=== PATIENT | male | born 1930 | race African-American/Black ===

== ENCOUNTER 2017-09-22 17:01 | Inpatient (IN) | payer OTHER ==
[~2017-09-22] VITALS: Ht 180.3 cm; Wt 85.3 kg
[2017-09-22 17:15] VITALS: BP 156/119
[2017-09-22] MEDS ORDERED: DILTIAZEM 24HR180 MG PO (17:23)
[2017-09-22] MEDS ORDERED: HYDROXYUREA500 M1 PO (17:23)
[2017-09-22] MEDS ORDERED: DOXAZOSIN MESYLA8 MG ORAL (17:23)
[2017-09-22] MEDS ORDERED: FINASTERIDE5 MG ORAL (17:23)
[2017-09-22] MEDS ORDERED: ALLOPURINOL100 M1 ORAL (17:23)
[2017-09-22] MEDS ORDERED: DIOVAN160 MG ORAL (17:23)
[2017-09-22] MEDS ORDERED: NORVASC10 MG ORAL (17:23)
[2017-09-22] MEDS ORDERED: QUINAPRIL HCL40 MG PO (17:23)
[2017-09-22] MEDS ORDERED: XARELTO10 MG ORAL (17:23)
[2017-09-22] MEDS ORDERED: dilTIAZem HCl 25mg/5ml Inj IVP ONE (17:30)
[2017-09-22] MEDS ORDERED: Norco 5mg/325mg tab ORAL ONE (17:30)
--- NOTE | 2017-09-22 17:35 | Emergency Room Report ---
History of Present Illness General Chief Complaint: Pain Source: Patient Present Illness HPI 87-year-old male brought in by EMS with one month of left thigh pain, but after fall on left knee outside. No referred pain to the pelvis or knee. Pain to left thigh with walking 15-20 steps. No pain on range of motion of left knee or left hip. 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 Was referred by his PMD who is a physician office rep but denies history of HD but states he has CKD. Patient also complaining of intermittent left-sided chest pain. States he is on Cardizem for "my heart" but denies known history of atrial fibrillation. States he is on xarelto to "prevent clots in my heart". Denies shortness of breath, cough fever chills. Patient overall is a poor historian - likely has known history of atrial fib given Cardizem and the coagulation that he takes took medications today Allergies: Coded Allergies: ASPIRIN (Verified Allergy, Unknown, 09/22/17) Patient History Past Medical History: HTN, AFib Past Surgical History: none Pertinent Family History: none Social History: Denies: smoking, alcohol use, drug use Immunizations: UTD Reviewed Nursing Documentation: PMH: Agreed, PSxH: Agreed Nursing Documentation-PMH Past Medical History: No History, Except For Hx Cardiac Problems: No Hx Hypertension: Yes Hx Pacemaker: No Hx Asthma: No Hx COPD: No Hx Diabetes: No Hx Cancer: No Hx Gastrointestinal Problems: No Hx Dialysis: No History Of Psychiatric Problem: No Hx Neurological Problems: No Hx Cerebrovascular Accident: No Hx Seizures: No Review of Systems All Other Systems: negative except mentioned in HPI Physical Exam Vital Signs Date Time Temp Pulse Resp B/P (MAP) Pulse Ox O2 Delivery O2 Flow Rate FiO2 09/22/17 16:56 97.7 118 16 162/89 96 Room Air Sp02 EP Interpretation: reviewed, normal General Appearance: normal inspection, well appearing, no apparent distress, alert, GCS 15, non-toxic Head: normocephalic, atraumatic Eyes: bilateral eye PERRL, bilateral eye EOMI ENT: normal ENT inspection, hearing grossly normal, normal pharynx, no angioedema, normal voice, TMs + canals normal, uvula midline, moist mucus membranes Neck: normal inspection, full range of motion, supple, thyroid normal, no meningismus, no bony tend Respiratory: normal inspection, lungs clear, normal breath sounds, no rhonchi, no respiratory distress, no retraction, no accessory muscle use, no wheezing, speaking full sentences Cardiovascular #1: no edema, no JVD, normal capillary refill, tachycardia, irregularly irregular Gastrointestinal: normal inspection, normal bowel sounds, non tender, soft, no mass, no peritonitis, non-distended, no guarding, no hernia, no pulsatile mass Genitourinary: no CVA tenderness Musculoskeletal: normal inspection, back normal, normal range of motion, no calf tenderness, pelvis stable, Edel's Sign negative, other - left thigh: No abscess, or cellulitis. focal tenderness to mid thigh. no pain or reduced range of motion to left hip or left knee. Mild old abrasions to patella. 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 tested, motor strength/tone normal, cerebellar normal, normal gait, speech normal Psychiatric: normal inspection, judgement/insight normal, mood/affect normal, no suicidal/homicidal ideation, no delusions Skin: normal inspection, normal color, no rash Lymphatic: normal inspection, no adenopathy Procedures Critical Care Time Critical Care Time CC time 45 Critical care time endorsed for this patient for atrial fib with RVR and chest pain Critical care time includes review of laboratory tests, imaging, review of EMR, review of paperwork from SNF (if available), discussion with patient and family (if available), review of code status/POLS (if available). Critical care time also likely includes assessment of fluid status, stabilization of vital signs, selection and dosing of appropriate antibiotics, selection and dosing of Aspirin/Plavix/Heparin/Lovenox, discussion with PMD/ attending hospitalist/dimension warehouse supervisor. Critical care time does not include any procedures which are documented elsewhere in this EMR. Medical Decision Making Diagnostic Impression: Primary Impression: Chest pain Qualified Codes: R07.9 - Chest pain, unspecified Additional Impressions: Atrial fibrillation with rapid ventricular response Left thigh pain CKD (chronic kidney disease) Qualified Codes: N18.9 - Chronic kidney disease, unspecified ER Course 87-year-old male, known A. fib, allegedly compliant with medication but found to be in RVR in the ER. Complaining of mild chest pain. Already on anticoagulation. Improved heart rate after IV diltiazem Labs: No leuks. H&H stable. Trop WNL. Mile elevated creatinine c/w patient's stated history of known CKD For Atrial fib with chest pain, given 15mg IV dose of cardizem with improvement in HR from 140/150 to 110. BP remained stable. Left thigh pain: No acute fracture, mass or other abnormality on images of left thigh and pelvis Pain likely MSK Pain is not posterior - doubt DVT given compliance on AC Endorsed to Dr Sanabria Panel admission Tele bed, 616pm EKG Diagnostic Results Rate: tachycardiac Rhythm: other - Atrial fib ST Segments: no acute changes ASA given to the pt in ED: No Rhythm Strip Diag. Results EP Interpretation: yes Rate: 144 Rhythm: other - +PVCs Chest X-Ray Diagnostic Results Chest X-Ray Diagnostic Results : Chest X-Ray Ordered: Yes Indication: Chest Pain EP Interpretation: Yes Interpretation: no effusion, no pneumothorax, other - Cardiomegaly Impression: No acute disease Electronically Signed by: Dr Esperanza Gama MD Other X-Ray Diagnostic Results Other X-Ray Diagnostic Results #1: X-Ray ordered: pelvis # of Views/Limited Vs Complete: 1 View Indication: Pain EP Interpretation: Yes Interpretation: no dislocation, no soft tissue swelling, no fractures Impression: No acute disease Electronically Signed by: Dr Esperanza Gama MD Other X-Ray Diagnostic Results #2: X-Ray ordered: Left femur # of Views/Limited Vs Complete: 4 View Indication: Pain EP Interpretation: Yes Interpretation: no dislocation, no soft tissue swelling, no fractures Impression: No acute disease Electronically Signed by: Dr Esperanza Gama mD Last Vital Signs Date Time Temp Pulse Resp B/P (MAP) Pulse Ox O2 Delivery O2 Flow Rate FiO2 09/22/17 17:15 97.7 143 22 156/119 98 Room Air Status: improved Disposition: ADMITTED INPATIENT Condition: Serious ESPERANZA GAMA M.D. Sep 22, 2017 17:35
[2017-09-22 17:55] LABS: BASOPHILS % (AUTO) 1.5 % (0.0-2.0); EOSINOPHILS % (AUTO) 0.5 % (0.0-3.0); LYMPHOCYTES % (AUTO) 6.1 % (20.0-45.0); MEAN CORPUSCULAR HEMOGLOBIN 33.2 PG (27.0-31.0); MEAN CORPUSCULAR HGB CONC 31.6 G/DL (32.0-36.0); MEAN CORPUSCULAR VOLUME 105 FL (80-99); MEAN PLATELET VOLUME 4.4 FL (6.5-10.1); MONOCYTES % (AUTO) 9.3 % (1.0-10.0); NEUTROPHILS % (AUTO) 82.6 % (45.0-75.0); PLATELET COUNT 592 K/UL (150-450); RED BLOOD COUNT 4.23 M/UL (4.70-6.10); WHITE BLOOD COUNT 9.5 K/UL (4.8-10.8)
[2017-09-22 18:06] LABS: ANION GAP 12 mmol/L (5-15); CALCIUM 9.5 MG/DL (8.5-10.1); CARBON DIOXIDE 25 MMOL/L (21-32); CHLORIDE 102 MMOL/L (98-107); CREATININE 1.6 MG/DL (0.55-1.30); POTASSIUM 3.7 MMOL/L (3.5-5.1); SODIUM 139 MMOL/L (136-145)
[2017-09-22] MEDS ORDERED: TYLENOL EXTRA500 MG ORAL (18:15)
[2017-09-22] MEDS ORDERED: ASPIR 8181 MG ORAL (18:15)
[2017-09-22 18:21] LABS: ALANINE AMINOTRANSFERASE 13 U/L (12-78); ALBUMIN/GLOBULIN RATIO 0.8 (1.0-2.7); ASPARTATE AMINO TRANSFERASE 12 U/L (15-37); CKMB 1.5 NG/ML (0.0-3.6); TOTAL PROTEIN 7.1 G/DL (6.4-8.2)
[2017-09-22 19:32] VITALS: BP 160/85
--- NOTE | 2017-09-22 20:02 | Cardiology Progress Note ---
Assessment/Plan Assessment/Plan The patient is seen and examined, full consult note will be dictated. Objective Last 24 Hour Vital Signs Date Time Temp Pulse Resp B/P (MAP) Pulse Ox O2 Delivery O2 Flow Rate FiO2 09/22/17 19:32 98.2 107 22 160/85 97 Room Air 09/22/17 19:00 97.7 09/22/17 17:48 143 156/119 09/22/17 17:15 143 22 Room Air 98 09/22/17 17:15 97.7 143 22 156/119 98 Room Air 09/22/17 16:56 97.7 118 16 162/89 96 Room Air Laboratory Tests Test 09/22/17 17:40 White Blood Count 9.5 K/UL (4.8-10.8) Red Blood Count 4.23 M/UL (4.70-6.10) L Hemoglobin 14.0 G/DL (14.2-18.0) L Hematocrit 44.4 % (42.0-52.0) Mean Corpuscular Volume 105 FL (80-99) H Mean Corpuscular Hemoglobin 33.2 PG (27.0-31.0) H Mean Corpuscular Hemoglobin Concent 31.6 G/DL (32.0-36.0) L Red Cell Distribution Width 13.0 % (11.6-14.8) Platelet Count 592 K/UL (150-450) H Mean Platelet Volume 4.4 FL (6.5-10.1) L Neutrophils (%) (Auto) 82.6 % (45.0-75.0) H Lymphocytes (%) (Auto) 6.1 % (20.0-45.0) L Monocytes (%) (Auto) 9.3 % (1.0-10.0) Eosinophils (%) (Auto) 0.5 % (0.0-3.0) Basophils (%) (Auto) 1.5 % (0.0-2.0) Sodium Level 139 MMOL/L (136-145) Potassium Level 3.7 MMOL/L (3.5-5.1) Chloride Level 102 MMOL/L (98-107) Carbon Dioxide Level 25 MMOL/L (21-32) Anion Gap 12 mmol/L (5-15) Blood Urea Nitrogen 19 mg/dL (7-18) H Creatinine 1.6 MG/DL (0.55-1.30) H Estimat Glomerular Filtration Rate mL/min (>60) Glucose Level 110 MG/DL (74-106) H Calcium Level 9.5 MG/DL (8.5-10.1) Total Bilirubin 0.6 MG/DL (0.2-1.0) Aspartate Amino Transf (AST/SGOT) 12 U/L (15-37) L Alanine Aminotransferase (ALT/SGPT) 13 U/L (12-78) Alkaline Phosphatase 118 U/L (46-116) H Total Creatine Kinase 38 U/L (26-308) Creatine Kinase MB 1.5 NG/ML (0.0-3.6) Creatine Kinase MB Relative Index 3.9 Troponin I 0.027 ng/mL (0.000-0.056) Total Protein 7.1 G/DL (6.4-8.2) Albumin 3.2 G/DL (3.4-5.0) L Globulin 3.9 g/dL Albumin/Globulin Ratio 0.8 (1.0-2.7) L SYEDA GUZMÁN Sep 22, 2017 20:02
[2017-09-22 21:00] VITALS: BP 152/99
[2017-09-22] MEDS: Morphine Sulfate 2mg/ml Inj IVP PRN (22:51)
[2017-09-22] MEDS ORDERED: Acetaminophen 500mg (ES) tab ORAL PRN (23:00)
[2017-09-23] VITALS: BP 141/87
[2017-09-23] MEDS ORDERED: Enoxaparin 40mg Inj SUBQ SCH
[2017-09-23 04:00] VITALS: BP 134/85
[2017-09-23 07:58] LABS: BASOPHILS % (AUTO) 0.8 % (0.0-2.0); EOSINOPHILS % (AUTO) 0.8 % (0.0-3.0); LYMPHOCYTES % (AUTO) 9.5 % (20.0-45.0); MEAN CORPUSCULAR HEMOGLOBIN 34.7 PG (27.0-31.0); MEAN CORPUSCULAR HGB CONC 33.1 G/DL (32.0-36.0); MEAN CORPUSCULAR VOLUME 105 FL (80-99); MEAN PLATELET VOLUME 4.7 FL (6.5-10.1); MONOCYTES % (AUTO) 11.9 % (1.0-10.0); NEUTROPHILS % (AUTO) 76.8 % (45.0-75.0); PLATELET COUNT 630 K/UL (150-450); RED BLOOD COUNT 4.44 M/UL (4.70-6.10); RED CELL DISTRIBUTION WIDTH 13.1 % (11.6-14.8); WHITE BLOOD COUNT 9.6 K/UL (4.8-10.8)
[2017-09-23 08:00] VITALS: BP 144/90
[2017-09-23 08:11] LABS: HEMOGLOBIN A1C 5.5 % (4.3-6.0)
[2017-09-23 08:17] LABS: ANION GAP 9 mmol/L (5-15); CALCIUM 9.7 MG/DL (8.5-10.1); CARBON DIOXIDE 28 MMOL/L (21-32); CHLORIDE 103 MMOL/L (98-107); CHOLESTEROL 143 MG/DL (< 200); CHOLESTEROL/HDL RATIO 1.6 (3.3-4.4); CREATININE 1.4 MG/DL (0.55-1.30); MAGNESIUM 1.8 MG/DL (1.8-2.4); POTASSIUM 4.4 MMOL/L (3.5-5.1); SODIUM 140 MMOL/L (136-145); THYROID STIMULATING HORMONE 0.759 uiU/mL (0.358-3.740)
[2017-09-23] MEDS ORDERED: Xarelto 10mg tab ORAL SCH (09:00)
[2017-09-23] MEDS: Hydroxyurea 500mg cap ORAL SCH (09:00)
[2017-09-23] MEDS: dilTIAZem HCl CD 180mg cap ORAL SCH (09:06)
[2017-09-23] MEDS: Allopurinol 100mg Tab ORAL SCH (09:06)
[2017-09-23] MEDS: Aspirin Baby 81mg ORAL SCH (09:06)
[2017-09-23] MEDS: Doxazosin 4mg tab ORAL SCH (09:07)
[2017-09-23] MEDS: Enoxaparin 40mg Inj SUBQ SCH (09:08)
[2017-09-23] MEDS: Morphine Sulfate 2mg/ml Inj IVP PRN (10:57)
[2017-09-23] MEDS ORDERED: Pneumococcal Vaccine 25mcg/0.5ml IM ONE (11:00)
[2017-09-23 12:00] VITALS: BP 145/81
--- NOTE | 2017-09-23 12:30 | History & Physical ---
History and Physical History & Physicial seen and examined. Dict completed Scotty Sanabria MD Sep 23, 2017 12:30
--- NOTE | 2017-09-23 12:35 | General Progress Note ---
Assessment/Plan Status: stable Assessment/Plan 1- Acute Dys-equilibrium 2- Dementia 3- Acute Encephalopathy ( ?), and Fall 4- Fall 5- Afib plan: Cardiology Neurology Head Ct PT/OT consulted Subjective ROS Limited/Unobtainable: No Constitutional: Reports: no symptoms HEENT: Reports: no symptoms Allergies: Coded Allergies: ASPIRIN (Verified Allergy, Unknown, 09/22/17) Subjective Left sided pain Objective Last 24 Hour Vital Signs Date Time Temp Pulse Resp B/P (MAP) Pulse Ox O2 Delivery O2 Flow Rate FiO2 09/23/17 09:06 100 134/85 09/23/17 04:00 97.7 100 20 134/85 97 Room Air 09/23/17 03:38 105 09/23/17 00:00 97.9 80 20 141/87 97 09/22/17 23:43 103 09/22/17 21:57 170 09/22/17 21:38 109 09/22/17 21:23 120 09/22/17 21:08 143 09/22/17 21:00 97.8 100 22 152/99 97 Room Air 09/22/17 21:00 94 09/22/17 20:45 98.2 107 22 160/85 97 Room Air 98 09/22/17 19:32 98.2 107 22 160/85 97 Room Air 09/22/17 19:00 97.7 09/22/17 17:48 143 156/119 09/22/17 17:15 143 22 Room Air 98 09/22/17 17:15 97.7 143 22 156/119 98 Room Air 09/22/17 16:56 97.7 118 16 162/89 96 Room Air Intake and Output 09/23/17 09/24/17 19:00 07:00 Intake Total 240 ml Output Total 350 ml Balance -110 ml Intake Oral 240 ml Output Urine Total 350 ml Laboratory Tests 09/22/17 17:40: White Blood Count 9.5, Red Blood Count 4.23L, Hemoglobin 14.0L, Hematocrit 44.4 , Mean Corpuscular Volume 105H, Mean Corpuscular Hemoglobin 33.2H, Mean Corpuscular Hemoglobin Concent 31.6L, Red Cell Distribution Width 13.0, Platelet Count 592H, Mean Platelet Volume 4.4L, Neutrophils (%) (Auto) 82.6H, Lymphocytes (%) (Auto) 6.1L, Monocytes (%) (Auto) 9.3, Eosinophils (%) (Auto) 0.5, Basophils (%) (Auto) 1.5, Sodium Level 139, Potassium Level 3.7, Chloride Level 102, Carbon Dioxide Level 25, Anion Gap 12, Blood Urea Nitrogen 19H, Creatinine 1.6H, Estimat Glomerular Filtration Rate , Glucose Level 110H, Calcium Level 9.5, Total Bilirubin 0.6, Aspartate Amino Transf (AST/SGOT) 12L, Alanine Aminotransferase (ALT/SGPT) 13, Alkaline Phosphatase 118H, Total Creatine Kinase 38, Creatine Kinase MB 1.5, Creatine Kinase MB Relative Index 3.9, Troponin I 0.027, Total Protein 7.1, Albumin 3.2L, Globulin 3.9, Albumin/ Globulin Ratio 0.8L 09/22/17 23:40: Troponin I 0.041 09/23/17 06:40: White Blood Count 9.6, Red Blood Count 4.44L, Hemoglobin 15.4, Hematocrit 46.6, Mean Corpuscular Volume 105H, Mean Corpuscular Hemoglobin 34.7H, Mean Corpuscular Hemoglobin Concent 33.1, Red Cell Distribution Width 13.1, Platelet Count 630H, Mean Platelet Volume 4.7L, Neutrophils (%) (Auto) 76.8H, Lymphocytes (%) (Auto) 9.5L, Monocytes (%) (Auto) 11.9H, Eosinophils (%) (Auto) 0.8, Basophils (%) (Auto) 0.8, Sodium Level 140, Potassium Level 4.4, Chloride Level 103, Carbon Dioxide Level 28, Anion Gap 9, Blood Urea Nitrogen 16, Creatinine 1.4H, Estimat Glomerular Filtration Rate , Glucose Level 102, Calcium Level 9.7, Troponin I 0.040, Hemoglobin A1c 5.5, Magnesium Level 1.8, Triglycerides Level 64, Cholesterol Level 143, LDL Cholesterol 57, HDL Cholesterol 88H, Cholesterol/HDL Ratio 1.6L, Thyroid Stimulating Hormone (TSH) 0.759 Height (Feet): 5 Height (Inches): 11.00 Weight (Pounds): 188 General Appearance: WD/WN EENT: PERRL/EOMI Neck: supple Respiratory/Chest: lungs clear Abdomen: soft Extremities: other - Dysequilibrium 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
--- NOTE | 2017-09-23 12:51 | Diagnostic Imaging Report ---
Indication: Altered mental status Technique: XRAY Chest 1v Comparison: None Findings: Heart appears borderline enlarged. There is central pulmonary vascular congestion. There is an ovoid density in the right midlung which measures up to 3.8 cm in length. There is no pleural effusion or pneumothorax. No acute osseous abnormality seen. Impression: Ovoid density in the right midlung measuring up to 3.7 cm. Lung mass not excluded. CT of the chest recommended for further evaluation. Probable cardiomegaly. Findings chest with treating nurse Kurt via telephone conversation at time of creation of final report.
--- NOTE | 2017-09-23 12:51 | Diagnostic Imaging Report ---
Indication: Altered mental status and pain. Technique: XRAY Pelvis 1v Comparison: None Findings: There is no acute fracture or dislocation. Degenerative changes of the hips and lower lumbar spine seen. There is slight protrusion of the acetabulum. Bowel gas pattern is partially visualized but grossly unremarkable. No radiopaque foreign body seen. Impression: No acute fracture or dislocation.
--- NOTE | 2017-09-23 12:54 | Diagnostic Imaging Report ---
Indication: Altered mental status. Pain. Technique: XRAY Femur 2v L Comparison: Correlation made to concurrent pelvic radiographs Findings: No acute fracture or dislocation. Mild degenerative changes of the left hip and knee noted. No radiopaque foreign body seen. Impression: No acute fracture or dislocation.
--- NOTE | 2017-09-23 13:24 | Neurology Progress Note ---
Interim History Interim History ROS Limited/Unobtainable: No Objective Physical Exam Last Vital Signs Date Time Temp Pulse Resp B/P (MAP) Pulse Ox O2 Delivery O2 Flow Rate FiO2 09/23/17 09:06 100 134/85 09/23/17 04:00 97.7 20 97 Room Air 09/22/17 20:45 98 Laboratory Tests Test 09/22/17 17:40 09/22/17 23:40 09/23/17 06:40 White Blood Count 9.5 K/UL (4.8-10.8) 9.6 K/UL (4.8-10.8) Red Blood Count 4.23 M/UL (4.70-6.10) L 4.44 M/UL (4.70-6.10) L Hemoglobin 14.0 G/DL (14.2-18.0) L 15.4 G/DL (14.2-18.0) Hematocrit 44.4 % (42.0-52.0) 46.6 % (42.0-52.0) Mean Corpuscular Volume 105 FL (80-99) H 105 FL (80-99) H Mean Corpuscular Hemoglobin 33.2 PG (27.0-31.0) H 34.7 PG (27.0-31.0) H Mean Corpuscular Hemoglobin Concent 31.6 G/DL (32.0-36.0) L 33.1 G/DL (32.0-36.0) Red Cell Distribution Width 13.0 % (11.6-14.8) 13.1 % (11.6-14.8) Platelet Count 592 K/UL (150-450) H 630 K/UL (150-450) H Mean Platelet Volume 4.4 FL (6.5-10.1) L 4.7 FL (6.5-10.1) L Neutrophils (%) (Auto) 82.6 % (45.0-75.0) H 76.8 % (45.0-75.0) H Lymphocytes (%) (Auto) 6.1 % (20.0-45.0) L 9.5 % (20.0-45.0) L Monocytes (%) (Auto) 9.3 % (1.0-10.0) 11.9 % (1.0-10.0) H Eosinophils (%) (Auto) 0.5 % (0.0-3.0) 0.8 % (0.0-3.0) Basophils (%) (Auto) 1.5 % (0.0-2.0) 0.8 % (0.0-2.0) Sodium Level 139 MMOL/L (136-145) 140 MMOL/L (136-145) Potassium Level 3.7 MMOL/L (3.5-5.1) 4.4 MMOL/L (3.5-5.1) Chloride Level 102 MMOL/L (98-107) 103 MMOL/L (98-107) Carbon Dioxide Level 25 MMOL/L (21-32) 28 MMOL/L (21-32) Anion Gap 12 mmol/L (5-15) 9 mmol/L (5-15) Blood Urea Nitrogen 19 mg/dL (7-18) H 16 mg/dL (7-18) Creatinine 1.6 MG/DL (0.55-1.30) H 1.4 MG/DL (0.55-1.30) H Estimat Glomerular Filtration Rate mL/min (>60) mL/min (>60) Glucose Level 110 MG/DL (74-106) H 102 MG/DL (74-106) Calcium Level 9.5 MG/DL (8.5-10.1) 9.7 MG/DL (8.5-10.1) Total Bilirubin 0.6 MG/DL (0.2-1.0) Aspartate Amino Transf (AST/SGOT) 12 U/L (15-37) L Alanine Aminotransferase (ALT/SGPT) 13 U/L (12-78) Alkaline Phosphatase 118 U/L (46-116) H Total Creatine Kinase 38 U/L (26-308) Creatine Kinase MB 1.5 NG/ML (0.0-3.6) Creatine Kinase MB Relative Index 3.9 Troponin I 0.027 ng/mL (0.000-0.056) 0.041 ng/mL (0.000-0.056) 0.040 ng/mL (0.000-0.056) Total Protein 7.1 G/DL (6.4-8.2) Albumin 3.2 G/DL (3.4-5.0) L Globulin 3.9 g/dL Albumin/Globulin Ratio 0.8 (1.0-2.7) L Hemoglobin A1c 5.5 % (4.3-6.0) Magnesium Level 1.8 MG/DL (1.8-2.4) Triglycerides Level 64 MG/DL (30-150) Cholesterol Level 143 MG/DL (< 200) LDL Cholesterol 57 mg/dL (<100) HDL Cholesterol 88 MG/DL (40-60) H Cholesterol/HDL Ratio 1.6 (3.3-4.4) L Thyroid Stimulating Hormone (TSH) 0.759 uiU/mL (0.358-3.740) Impression/Recommendations Status: stable Recommendations # [id number] IONA MURGUIA Sep 23, 2017 13:24
--- NOTE | 2017-09-23 14:01 | Cardiology Report ---
APPROVED REPORT EXAM: Two-dimensional and M-mode echocardiogram with Doppler and color Doppler. INDICATION Atrial Fibrillation M-Mode DIMENSIONS IVSd1.0 (0.7-1.1cm)Left Atrium (MM)5.5 (1.6-4.0cm) LVDd4.5 (3.5-5.6cm)Aortic Root2.8 (2.0-3.7cm) PWd1.1 (0.7-1.1cm)Aortic Cusp Exc.2.0 (1.5-2.0cm) LVDs2.7 (2.5-4.0cm) PWs1.6 cm Normal left ventricular chamber size, systolic function and wall motion. Left ventricular ejection fraction estimated to be 60 %. No evidence of left ventricular hypertrophy. Anterior Echo-free space, may be due to pericardial fat or effusion. Mild bi-atrial enlargement. Right ventricular chamber size is within normal limits. Focal aortic valve sclerosis with adequate cusp excursion. Thickened mitral valve leaflets with normal excursion. Mitral annulus and aortic root calcification. Normal pulmonic valve structure. Normal tricuspid valve structure. IVC at normal size with physiologic collapse. A color flow and spectral Doppler study was performed and revealed: Moderate aortic regurgitation. Moderate mitral regurgitation. Left ventricular diastolic function could not be determined due to A-Fib. Mild tricuspid regurgitation. Tricuspid systolic velocities suggests peak right ventricular systolic pressure of 62 mmHg, consistent with severe pulmonary hypertension. Trace pulmonic regurgitation present.
--- NOTE | 2017-09-23 14:19 | Cardiology Report ---
APPROVED REPORT EKG Measurement Heart [id number] Atrial fibrillation with rapid ventricular response Septal infarct, age undetermined Abnormal ECG
--- NOTE | 2017-09-23 14:19 | Cardiology Report ---
APPROVED REPORT EKG Measurement Heart [id number] Atrial fibrillation with rapid ventricular response Low voltage QRS Abnormal ECG
[2017-09-23 16:00] VITALS: BP 137/82
[2017-09-23 16:01] LABS: CRP QUANT 4.5 mg/dL (0.00-0.90); PSA TOTAL 1.78 ng/mL (0.13-4.0)
[2017-09-23 20:11] VITALS: BP 145/80
--- NOTE | 2017-09-23 22:16 | Consultation ---
DATE OF CONSULTATION: 09/23/2017 NEUROLOGICAL CONSULTATION CONSULTING PHYSICIAN: Bi Marti M.D. REQUESTING PHYSICIAN: Scotty Sanabria M.D. HISTORY OF PRESENT ILLNESS: This is an 87-year-old man seen in neurological consultation to evaluate the new onset of inability to ambulate. The patient who appears to be a reasonable historian informed me that about 2 months ago he started to develop a persistent pain in the right thigh region, was increasing with ambulation subsiding while he is supine. His attending physician was unable to figure out the diagnosis and recommended him to be seen by content strategist. One month ago, he was loading his car, he got some off balance and fell down landing on his left knee. He had a local pain but 2 weeks later pain continued to increase and yesterday as he tried to ambulate he was unable, fell down because of pain in his both lower extremities. There was no associated symptomatology. No loss of consciousness. No unilateral weakness, numbness, or tingling. No chest pain or palpitations. The patient was brought to this hospital still complaining of intermittent left-sided chest pain, but mainly he has pain in his both lower extremities and difficulty ambulating due to inability to step or to place weight on his left leg with the pain in his knee. His vital signs on admission included blood pressure 162/89 and heart rate 118. His blood glaucoma scale was 15. His EKG, tachycardia with atrial fibrillation, heart rate of 144. Chest x-ray, no acute disease noted. X-ray of the left femur, no dislocation. No fractures noted. The patient was treated with 50 mg IV dose of Cardizem improving heart rate down to 110. Since admission until present, there were no further changes in his condition. The patient indicated while supine, pain is comfortable. The patient now informs me that pain was now controlled by "morphine" given by his attending physician but he felt better with the Tylenol and topical ointments. Lab work on admission included CBC study with elevated MCV, MCH. Chemistry panel with BUN of 19 and creatinine 1.6. Repeat testing was normal BUN, but creatinine 1.4. Glucose 110. Normal troponin and TSH. PAST MEDICAL HISTORY: The patient has a history of chronic renal failure, hypertension and cardiac disease requiring use of Eliquis. Cardiac disease, most likely atrial fibrillation. CURRENT MEDICATIONS: His treatment included allopurinol, amlodipine, aspirin, diltiazem, doxazosin, finasteride, hydroxyurea, quinapril, Xarelto 10 mg daily and Diovan 160 mg daily. ALLERGIES: Aspirin. SOCIAL HISTORY: The patient lives alone. He is driving his car. 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 No alcohol. No drug abuse. Nonsmoker. Able to proceed with all activities of daily living. FAMILY HISTORY: Noncontributory. REVIEW OF SYMPTOMS: Mild discomfort in the right thigh and left knee while supine, pain increasing with ambulation. He developed months ago left shoulder pain without evidence of previous injury. He denies headache or dizziness. No chest pain. No palpitations. No respiratory problems. Denies abdominal pain or discomfort. No urine or bowel incontinence. No evidence of depression. PHYSICAL EXAMINATION: GENERAL: A well-developed, well-nourished, younger than stated age appearing man, in no acute distress. VITAL SIGNS: Now are stable. Blood pressure 134/85 and heart rate of 100. Afebrile. HEENT: Head, normocephalic. No evidence of trauma. Eyes, ears, nose, and throat are clear. NECK: Supple. No meningeal signs. MUSCULOSKELETAL EXAMINATION: Unremarkable except palpable tenderness in the right thigh region and some tenderness in the left knee region. There is a healed recent bruise on his left knee noted. There is tenderness on palpation of the left shoulder with limited range of motion of the left shoulder. Peripheral pulses 1+ symmetric. MENTAL STATUS: Alert and oriented x3 with no evidence of aphasia or apraxia. Cognitive function is reasonable, although he is somewhat forgetful on recent events, but remained coherent. CRANIAL NERVE II: Pupils both responding to light and accommodation. Extraocular movement intact. No nystagmus. CRANIAL NERVE V: Normal corneal responses. CRANIAL NERVE VII: No facial asymmetry. CRANIAL NERVE VIII: Grossly normal hearing. CRANIAL NERVES IX THROUGH XII: With normal limits. MOTOR EXAMINATION: Normal muscle tone. Strength 5/5 in all extremities. No involuntary movement. Deep tendon reflexes 1+ bilaterally symmetric. SENSORY EXAMINATION: Normal to pinprick light touch. Gait, the patient was able to stand up on his feet, but he was heavily limping to the left due to pain in his left knee. IMPRESSION: 1. Progressive generalized aches and pains, rule out occult fracture left knee and rule out left shoulder pericapsulitis and rule out collagen vascular disease. 2. Abnormal gait due to pain in his lower extremities. 3. No evidence of transient ischemic attack or stroke. 4. Atrial fibrillation, now on Xarelto. 5. Chronic renal failure. 6. Hypertension. RECOMMENDATIONS: 1. Get x-rays of the left shoulder and left knee. 2. Get collagen vascular profile. 3. Orthopedic assessment regarding possible left shoulder pericapsulitis. 4. Topical anti-inflammatory agents to painful joints. The patient is unable to take by mouth nonsteroidal agents due to renal insufficiency and use of Xarelto. 5. Get PT/OT. Thank you for allowing me to see this interesting patient in neurological consultation. Bi Marti M.D. DR: ANTOINETTE JOB#: [id number] CC:
[2017-09-23] MEDS: Zolpidem 5mg tab ORAL PRN (23:11)
--- NOTE | 2017-09-23 23:45 | History and Physical Report ---
DATE OF ADMISSION: 09/22/2017 SOURCE OF INFORMATION: The patient and EMR. HISTORY OF PRESENT ILLNESS: The patient is a pleasant 87-year-old male with history of chronic kidney disease and atrial fibrillation. The patient presented to the emergency room with unsteady gait, ataxia, and pain in the left side of the body for the last couple of weeks and gradually getting worse. At the time of evaluation in the emergency room, initial vital signs showed irregular uncontrolled atrial fibrillation. The patient is complaining of an episode of fall on the left side. The patient denies any gross sensory problem. The patient appears to suffer from dementia at this time, the patient denies any nausea, vomiting, diarrhea, constipation, fever, or chills. PAST MEDICAL HISTORY: Atrial fibrillation, hypertension, and BPH. PAST SURGICAL HISTORY: Denies. CURRENT HOSPITAL MEDICATIONS: Including but not limited to Protonix, hydroxyurea 500 mg daily, Proscar, Cardura, diltiazem, aspirin, and allopurinol. ALLERGIES: To aspirin. SOCIAL HISTORY: There is no documented history of illicit drug abuse, smoking, or alcohol abuse. FAMILY HISTORY: Reviewed and noncontributory. REVIEW OF SYSTEMS: All 12 elements of review of systems reviewed with the patient. Pertinent positives and negatives reported as above. PHYSICAL EXAMINATION: VITAL SIGNS: Blood pressure 145 /80, temperature 98.2, pulse oximetry 98% on room air, respiratory rate 18-20, and pulse rate 110-140. HEAD AND NECK: Atraumatic, normocephalic. CHEST: Diffuse bronchial breathing sounds. HEART: S1, S2. Regular rate and rhythm. ABDOMEN: Soft. No organomegaly. MUSCULOSKELETAL: Decreased range of motion in the left lower extremity. NEUROLOGIC: The patient is awake, alert, and oriented x3. Positive for dementia. PSYCHIATRIC: Mood and affect are depressed. LABORATORY DATA: Laboratories dated 09/22/2017, show WBC 9.5, hemoglobin 14, and platelets 592,000. Sodium 139, potassium 3.7, BUN 19, and creatinine 1.6. A1c 5.5. AST 12. LDL 57. TSH 0.8. Troponin x3 negative. ASSESSMENT AND PLAN: 1. Disequilibrium. 2. Atrial fibrillation, uncontrolled. 3. Acute encephalopathy - possibility cannot be excluded in this poor historian patient. 4. Dementia. 5. Hypertension. 6. Benign prostatic hypertrophy. 7. Renal failure, age indeterminate. 8. Gastrointestinal and deep vein thrombosis prophylaxes. PLAN OF CARE: Neurology, cardiology are consulted. We will continue with the current medication. A 2D echo and carotid duplex requested. Continue with anticoagulation. Optimize medication to control the cardiac rhythm and cardiac rate. Scotty Sanabria M.D. DR: SUSSY JOB#: [id number] CC: CARLI
[2017-09-24 00:25] VITALS: BP 150/87
[2017-09-24 03:57] VITALS: BP 141/95
--- NOTE | 2017-09-24 07:57 | General Progress Note ---
Assessment/Plan Status: stable Assessment/Plan 1. Disequilibrium. 2. Atrial fibrillation, 3. Acute encephalopathy - possibility cannot be excluded in this poor historian patient. 4. Dementia. 5. Hypertension. 6. Benign prostatic hypertrophy. 7. Renal failure, age indeterminate. 8. Gastrointestinal and deep vein thrombosis prophylaxes. plan: Cardiology Neurology Notes reviewed Head Ct pending PT/OT consulted SNIF placement for Rehab Subjective ROS Limited/Unobtainable: No Constitutional: Reports: malaise Neurologic/Psychiatric: Reports: other - dysequilibrium Allergies: Coded Allergies: ASPIRIN (Verified Allergy, Unknown, 09/22/17) Subjective Left sided pain Objective Last 24 Hour Vital Signs Date Time Temp Pulse Resp B/P (MAP) Pulse Ox O2 Delivery O2 Flow Rate FiO2 09/24/17 04:00 118 09/24/17 03:57 97.6 107 20 141/95 97 Room Air 09/24/17 00:25 97.7 81 20 150/87 97 Room Air 09/24/17 00:00 100 09/23/17 20:11 97.7 100 23 145/80 97 Room Air 09/23/17 20:00 116 09/23/17 16:00 102 09/23/17 16:00 97.9 98 20 137/82 100 Room Air 09/23/17 12:00 97.5 87 20 145/81 98 Room Air 09/23/17 12:00 116 09/23/17 09:06 100 134/85 09/23/17 08:00 97.7 72 20 144/90 97 Room Air 09/23/17 08:00 89 Height (Feet): 5 Height (Inches): 11.00 Weight (Pounds): 188 General Appearance: no apparent distress EENT: PERRL/EOMI Neck: supple Cardiovascular: normal rate Respiratory/Chest: lungs clear Abdomen: soft Extremities: other - limping, pain in left leg 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
[2017-09-24 08:00] VITALS: BP 139/84
[2017-09-24] MEDS: Allopurinol 100mg Tab ORAL SCH (08:58)
[2017-09-24] MEDS: Aspirin Baby 81mg ORAL SCH (08:58)
[2017-09-24] MEDS: Hydroxyurea 500mg cap ORAL SCH (08:58)
[2017-09-24] MEDS: dilTIAZem HCl CD 180mg cap ORAL SCH (08:58)
[2017-09-24] MEDS: Doxazosin 4mg tab ORAL SCH (08:58)
[2017-09-24] MEDS: Enoxaparin 40mg Inj SUBQ SCH (08:59)
--- NOTE | 2017-09-24 11:23 | Diagnostic Imaging Report ---
Indication: Headache Technique: Contiguous 5 mm thick transaxial imaging of the head obtained in a Siemens Sensation [address] scanner. Soft tissue and bone windows generated. Automatic Exposure Control was utilized. Total Dose length Product (DLP): 1439.[address] Dose Index Volume (CTDIvol): 70.38 mGy Comparison: none Findings: There is moderate prominence of the ventricles, basal cisterns, and cerebral sulci consistent with atrophy. Moderate, nonspecific, white matter hypoattenuation is noted throughout the brain consistent with chronic small vessel disease. There is no midline shift, edema, acute hemorrhage, mass effect, or abnormal extra-axial fluid collections. Bones and extra osseous soft tissues are unremarkable. Impression: No acute intracranial bleed, mass effect or edema. Moderate atrophy of the brain. Evidence of chronic small vessel disease involving white matter tracts. The CT scanner at [facility] is accredited by the [employer] and the scans are performed using dose optimization techniques as appropriate to a performed exam including Automatic Exposure control.
[2017-09-24 12:00] VITALS: BP 135/100
--- NOTE | 2017-09-24 13:42 | Diagnostic Imaging Report ---
Indication: Pain 3 views of the left knee were obtained. Findings: No acute fracture, malalignment, or joint effusion are identified. Joint space is relatively well-maintained. Impression: Negative for acute injury
--- NOTE | 2017-09-24 13:43 | Diagnostic Imaging Report ---
Indication: Pain Findings: 3 views of the left shoulder were obtained. Alignment of the left shoulder is normal. No acute fracture is identified. Soft tissues are unremarkable. Bones are osteopenic. Impression: No acute injury
[2017-09-24 16:00] VITALS: BP 151/91
--- NOTE | 2017-09-24 16:27 | Diagnostic Imaging Report ---
Indication: Chest pain Technique: Continuous helical transaxial imaging of the chest was obtained from the thoracic inlet to the upper abdomen. No intravenous contrast was administered. Coronal 2-D reformats were also obtained. Total Dose length Product (DLP): 651.[address] Dose Index Volume (CTDIvol): 16.29 mGy Comparison: none Findings: There is a possibility for centimeter spiculated mass within the right middle lobe suspicious for bronchogenic carcinoma. There is associated atelectasis at the medial edge of this mass extending into the right hilum. There is a small pericardial effusion. There is a suggestion of mediastinal and hilar nodes. Aorta is moderately calcified. There is a cyst moderate right pleural effusion and trace left pleural effusion. There are multiple hypodensities within the liver and left kidney likely cysts. There is suggestion of a nonobstructing stone in the right kidney incompletely assessed and visualized on this study. There is a prominent lytic focus demonstrated within the posterior aspect of the T10 vertebra consistent with metastatic neoplasm. IMPRESSION: 4 cm mass in the right middle lobe consistent with bronchogenic carcinoma. Hilar and mediastinal adenopathy. Lytic metastatic focus noted involving the left T10 vertebra. Multiple liver and left renal cysts. Suspicion of nonobstructing stone in the right kidney. Small pericardial effusion Moderate right pleural effusion. Limited evaluation due to the absence of contrast material not given for this study. The CT scanner at [facility] is accredited by the [employer] and the scans are performed using dose optimization techniques as appropriate to a performed exam including Automatic Exposure control.
[2017-09-24 20:00] VITALS: BP 145/97
[2017-09-24] MEDS: Enoxaparin 80mg Inj SUBQ SCH (22:01)
[2017-09-24] MEDS: Zolpidem 5mg tab ORAL PRN (23:12)
[2017-09-24] MEDS: dilTIAZem HCl 30mg tab ORAL SCH (23:12)
[2017-09-25] VITALS: BP_SYST 138; BP_SYST 152; BP_DIAS 79; BP_DIAS 92
[2017-09-25] MEDS ORDERED: dilTIAZem HCl 30mg tab ORAL SCH ×2
[2017-09-25] MEDS ORDERED: dilTIAZem HCl CD 180mg cap ORAL SCH
[2017-09-25 04:00] VITALS: BP 142/84
[2017-09-25] MEDS: dilTIAZem HCl 30mg tab ORAL SCH (06:06)
--- NOTE | 2017-09-25 07:49 | General Progress Note ---
Assessment/Plan Status: stable Assessment/Plan 1. Disequilibrium, possibility of brain met, cant be excluded 2. Atrial fibrillation, 3. Acute encephalopathy - possibility of brain met, cant be excluded 4. New Lung CA in RLL 4. Dementia. 5. Hypertension. 6. Benign prostatic hypertrophy. 7. Renal failure, age indeterminate. 8. Gastrointestinal and deep vein thrombosis prophylaxes. plan: Cardiology Neurology Notes reviewed start Lovenox Hem/onch consult- TREATMENT/STAGING WILL BE DEFERRED TO OUT PATIENT New Lung CA in RLL SNIF placement once medically clear Subjective ROS Limited/Unobtainable: No Constitutional: Reports: malaise HEENT: Reports: no symptoms Cardiovascular: Reports: no symptoms Allergies: Coded Allergies: ASPIRIN (Verified Allergy, Unknown, 09/22/17) Subjective Left sided pain Objective Last 24 Hour Vital Signs Date Time Temp Pulse Resp B/P (MAP) Pulse Ox O2 Delivery O2 Flow Rate FiO2 09/25/17 06:06 112 142/84 09/25/17 04:00 101 09/25/17 04:00 97.3 94 20 142/84 Room Air 09/25/17 00:00 108 09/25/17 00:00 98.2 132 20 152/92 97 Room Air 09/24/17 23:12 121 145/97 09/24/17 20:00 116 09/24/17 20:00 98.2 101 20 145/97 95 Room Air 09/24/17 16:00 97.9 103 19 151/91 97 09/24/17 16:00 134 09/24/17 12:00 125 09/24/17 12:00 97.2 75 19 135/100 99 09/24/17 08:58 107 139/84 09/24/17 08:00 97.2 107 20 139/84 99 09/24/17 08:00 131 Height (Feet): 5 Height (Inches): 11.00 Weight (Pounds): 188 General Appearance: no apparent distress EENT: PERRL/EOMI Neck: supple Cardiovascular: normal rate Respiratory/Chest: rhonchi - bilaterally, rhonchi - right Abdomen: soft Extremities: other 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
[2017-09-25 08:15] VITALS: BP 148/104
[2017-09-25] MEDS: Doxazosin 4mg tab ORAL SCH (08:19)
[2017-09-25] MEDS: Aspirin Baby 81mg ORAL SCH (08:20)
[2017-09-25] MEDS: dilTIAZem HCl 60mg tab ORAL SCH ×3 (08:20→22:06)
[2017-09-25] MEDS: Hydroxyurea 500mg cap ORAL SCH (08:20)
[2017-09-25] MEDS: Enoxaparin 80mg Inj SUBQ SCH ×2 (08:21→22:05)
[2017-09-25] MEDS: Allopurinol 100mg Tab ORAL SCH (10:04)
[2017-09-25 12:00] VITALS: BP 142/77
--- NOTE | 2017-09-25 13:06 | Neurology Progress Note ---
Interim History Interim History ROS Limited/Unobtainable: No Complaints: pain L shoulder/left knee/foot, affecting his gait Events: stable Objective Physical Exam Last Vital Signs Date Time Temp Pulse Resp B/P (MAP) Pulse Ox O2 Delivery O2 Flow Rate FiO2 09/25/17 12:00 97.7 87 18 142/77 95 Room Air 09/22/17 20:45 98 General: well developed, well nourished, no acute distress Head: normocophalic, atraumatic Neck: no rigidity EENT: benign Neurologic Exam Mental Status: awake, alert, oriented x4, normal cognition, good mathematical skills, normal recent memory, normal remote memory, preserved visuospatial function Speech: normal speech, no dysarthia Language: normal language, no aphasia Cranial Nerve II: fundus normal, visual mittal, no papilledema Cranial Nerves III, IV, : PERRLA, EOMI, pupils Cranial Nerve V: normal facial sensations, temporales function normal, masseters function normal, pterygoids function normal Cranial Nerve VII: no facial asymmetry, normal facial expressions Cranial Nerve VIII: normal hearing, no nystagmus Cranial Nerve IX: normal palate elevation, gag response Cranial Nerve X: no voice hoarseness Cranial Nerve XI: SCM symmetric, trapezii function normal Cranial Nerve XII: tongue midline, no tongue atrophy/fasciculations Motor System: normal muscle tone, strength 5/5, no involuntary movement, no muscle wasting Sensory: normal pinprick Coordination: normal finger to nose bilaterally, normal heel to chun bilaterally Deep Tendon Reflexes: 1+ bicep (L), 1+ bicep (R), 1+ tricep (L), 1+ tricep (R) , 1+ brachioradialis (L), 1+ brachioradialis (R), 1+ knee (L), 1+ knee (R), 1+ ankle (L), 1+ ankle (R) Reflexes: mute plantar (L), mute plantar (R) Stance: normal Gait: other - unable to put wt on L foot 2/2 pain-- unable to walk ,unless fully assaisted Impression/Recommendations Problems: (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
[2017-09-25 16:14] VITALS: BP 135/87
--- NOTE | 2017-09-25 17:50 | Consultation ---
Consult Note Consult Note PCCM Consultation REFERRING PHYSICIAN: Scotty Sanabria MD REASON FOR CONSULTATION: Lung mass HPI: 87 M former smoker a/w unsteady gait and weakness noted to be in AFcRVR, CXR showed a R mid lung density, CT chest was done which demonstrated a 4 cm spiculated RML mass with hilar and mediastinal LAD + moderate R sided effusion and possible T10 lytic lesion. The patient denies any cough, SOB, wheezing, hemoptysis, weight loss, sweats, F/C or other complaints. In addition to the CP and generalized weakness he was admitted with he has several months of L thigh and knee pain, XR was unrevealing. His TTE showed a PASP of 69 without any e/o LV dysfunction. 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 MEDS: Active Scripts Medications Dose Route/Sig Max Daily Dose Days Date Category Aspir 81* (Aspirin) 81 Mg Tablet.dr 81 Mg ORAL DAILY 09/22/17 Reported Tylenol Extra Strength* (Acetaminophen) 500 Mg Tablet 500 Mg ORAL Q6H PRN 09/22/17 Reported Quinapril Hcl 40 Mg Tablet 40 Mg PO 09/22/17 Reported Finasteride 5 Mg Tablet 5 Mg ORAL DAILY 09/22/17 Reported Diovan (Valsartan) 160 Mg Tablet 160 Mg ORAL DAILY 09/22/17 Reported Hydroxyurea 500 Mg Capsule 500 Mg PO 09/22/17 Reported Allopurinol* (Allopurinol) 100 Mg Tablet 100 Mg ORAL DAILY 09/22/17 Reported Xarelto* (Rivaroxaban) 10 Mg Tablet 10 Mg ORAL DAILY 09/22/17 Reported Doxazosin Mesylate 8 Mg Tablet 8 Mg ORAL DAILY 09/22/17 Reported Diltiazem 24HR Cd (Diltiazem Hcl) 180 Mg Cap.er.24h 180 Mg PO 09/22/17 Reported Norvasc (Amlodipine Besylate) 10 Mg Tablet 10 Mg ORAL DAILY 09/22/17 Reported SHx: Prior extensive tobbaco, quit > 20 years ago, no drug or EtOH abuse, lives independantly FHx: N/C ROS: Negative other than HPI PE: Last 24 Hour Vital Signs Date Time Temp Pulse Resp B/P (MAP) Pulse Ox O2 Delivery O2 Flow Rate FiO2 09/25/17 16:50 92 09/25/17 16:14 97.2 117 18 135/87 95 Room Air 09/25/17 13:48 87 142/77 09/25/17 12:00 97.7 87 18 142/77 95 Room Air 09/25/17 11:33 91 09/25/17 08:20 112 148/104 09/25/17 08:15 97.3 103 20 148/104 94 Room Air 09/25/17 07:53 107 09/25/17 06:06 112 142/84 09/25/17 04:00 101 09/25/17 04:00 97.3 94 20 142/84 Room Air 09/25/17 00:00 108 09/25/17 00:00 98.2 132 20 152/92 97 Room Air 09/24/17 23:12 121 145/97 09/24/17 20:00 116 09/24/17 20:00 98.2 101 20 145/97 95 Room Air GEN: NAD, AAOX3 HEENT: NC/AT, OPC c MMM NECK: Supple s LAD or JVD CHEST: CTA COR: Ir Ir ABD: S/NT/D c NABS EXT: No C/C/E 09/24/17 CT CHEST: IMPRESSION: 4 cm mass in the right middle lobe consistent with bronchogenic carcinoma. Hilar and mediastinal adenopathy. Lytic metastatic focus noted involving the left T10 vertebra. Multiple liver and left renal cysts. Suspicion of nonobstructing stone in the right kidney Small pericardial effusion Moderate right pleural effusion. Limited evaluation due to the absence of contrast material not given for this study. 09/23/17 TTE: Normal left ventricular chamber size, systolic function and wall motion. Left ventricular ejection fraction estimated to be 60 %. No evidence of left ventricular hypertrophy. Anterior Echo-free space, may be due to pericardial fat or effusion. Mild bi-atrial enlargement. Right ventricular chamber size is within normal limits. Focal aortic valve sclerosis with adequate cusp excursion. Thickened mitral valve leaflets with normal excursion. Mitral annulus and aortic root calcification. Normal pulmonic valve structure. Normal tricuspid valve structure. IVC at normal size with physiologic collapse. A color flow and spectral Doppler study was performed and revealed: Moderate aortic regurgitation. Moderate mitral regurgitation. Left ventricular diastolic function could not be determined due to A-Fib. Mild tricuspid regurgitation. Tricuspid systolic velocities suggests peak right ventricular systolic pressure of 62 mmHg, consistent with severe pulmonary hypertension. Trace pulmonic regurgitation present. Assessment/Plan ASSESSMENT: -RML 4 cm density with hilar + mediastinal LAD, concerning for a primary lung malignancy -Moderate R sided pleural effusion -Possible T10 lytic lesion -AF, admitted with RVR, now rate controlled and on A/C -Pulmonary HTN (on TTE) -Extensive prior tobacco use -Possible underlying COPD -LE pain and recent immobility -BRAULIO on CKD -BPH PLAN: -The appropriate work up of this lung mass would be a PET/CT + bone scan given concern for lytic lesions followed by EITHER a CT guided biopsy of the mass followed by a mediastinoscopy versus a NAVIGATIONAL BRONCHOSCOPY with EBUS FNA of the mediastinal nodes for definitive staging. Given the patient is currently on LMWH I would prefer to start with imaging and then we would have to hold the A/C and go ahead with a definitive tissue diagnosis. I have discussed this with the patient and will discuss if further with Dr. Sanabria and Heme-Onc prior to formulating a definitive plan. -Will need outpatient PFT's -Optimize pulmonary hygiene/mobilize as tolerated -PRN HHN's -Rate control (dilt) per cards -Repeat TTE in the future once acute issues resolved and if PASP truly elevated can w/u further at that time -F/U neuro recs, consider PT, consider ortho eval -DVT Px: A/C Ziggy Ace MD, [facility] Pulmonary & Critical Care Medicine [address], [address] [place] [address] ZIGGY ACE M.D. Sep 25, 2017 17:50
--- NOTE | 2017-09-25 18:53 | Cardiology Progress Note ---
Assessment/Plan Assessment/Plan 1. Atrial fibrillation, continue Xarelto and cardizem. 2. HTN, on cardizem 3. Right lung mass Subjective Subjective Atrial fibrillation at 92. Objective Last 24 Hour Vital Signs Date Time Temp Pulse Resp B/P (MAP) Pulse Ox O2 Delivery O2 Flow Rate FiO2 09/25/17 16:50 92 09/25/17 16:14 97.2 117 18 135/87 95 Room Air 09/25/17 13:48 87 142/77 09/25/17 12:00 97.7 87 18 142/77 95 Room Air 09/25/17 11:33 91 09/25/17 08:20 112 148/104 09/25/17 08:15 97.3 103 20 148/104 94 Room Air 09/25/17 07:53 107 09/25/17 06:06 112 142/84 09/25/17 04:00 101 09/25/17 04:00 97.3 94 20 142/84 Room Air 09/25/17 00:00 108 09/25/17 00:00 98.2 132 20 152/92 97 Room Air 09/24/17 23:12 121 145/97 09/24/17 20:00 116 09/24/17 20:00 98.2 101 20 145/97 95 Room Air Intake and Output 09/25/17 09/26/17 19:00 07:00 Intake Total 480 ml Output Total 200 ml Balance 280 ml Intake Oral 480 ml Output Urine Total 200 ml # Voids 2 2D Echo: LVEF 60%, Mod ANNE MARIE, RVSP 62 mmHg, Mod AR/MR Laboratory Tests Test 09/25/17 18:10 Fibrinogen Pending Jak2 V617F Mutation Detection Pending JAK2 V617F Mutation Background Pending JAK2 V617F Reviewed By Pending Iron Level Pending Unsaturated Iron Binding Pending Ferritin Pending Alpha Fetoprotein Pending CA 15-3 Antigen Pending Folate Pending Objective HEENT: normocephalic, atraumatic, PERRL, EOMI, moist mucus membranes Neck: No JVD, no carotid bruit Respiratory: normal inspection, lungs clear Cardiovascular: no edema, no JVD, normal capillary refill, tachycardia, irregularly irregular Gastrointestinal: normal inspection, normal bowel sounds, non tender, soft, no mass, no peritonitis, non-distended, no guarding, no hernia, no pulsatile mass Musculoskeletal: left thigh, focal tenderness to mid thigh, no edema, clubbing or cyanosis, Mild old abrasions to patella. SYEDA GUZMÁN Sep 25, 2017 18:53
[2017-09-25 19:16] LABS: FERRITIN 273 NG/ML (8-388)
[2017-09-25 19:31] LABS: FOLIC ACID 10.7 NG/ML (8.6-58.9); IRON 34 ug/dL (50-175); TOTAL IRON BINDING CAPACITY 187 ug/dL (250-450)
[2017-09-25 20:00] VITALS: BP 154/90
[2017-09-25] MEDS: Zolpidem 5mg tab ORAL PRN (22:09)
--- NOTE | 2017-09-25 22:17 | Consultation ---
DATE OF CONSULTATION: 09/22/2017 CARDIOLOGY CONSULTATION CONSULTING PHYSICIAN: Terrance Vogt M.D. REFERRING PHYSICIAN: Scotty Sanabria M.D. REASON FOR CONSULTATION: Management of syncope. HISTORY OF PRESENT ILLNESS: The patient is a very unfortunate 87-year-old gentleman, who was brought in by EMS for evaluation of syncope. Apparently, the patient has had frequent falls with questionable syncopal events. 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 He is known to have atrial fibrillation and was tried on Coumadin in the past, however, that therapy was discontinued due to GI bleed. He also has history of pacemaker implantation. Complaining of left-sided chest pain and left thigh pain. Apparently, he had an episode of fall on the left knee recently. He was found to have atrial fibrillation with rapid ventricular response on arrival to the emergency department. Further questioning from the patient in the emergency department revealed that he had also intermittent left-sided chest pain. He takes Xarelto for prevention of thromboembolic events. He is a very poor historian and is not capable of providing a detailed history of the reason why he is in the emergency department. PAST MEDICAL HISTORY: Consistent with: 1. Hypertension. 2. History of atrial fibrillation. PAST SURGICAL HISTORY: None. MEDICATIONS: List of medications include acetaminophen 500 mg q.6 hours p.r.n. pain, allopurinol 100 mg p.o. daily, Norvasc 10 mg p.o. daily, aspirin 81 mg p.o. daily, diltiazem 180 mg p.o. daily, doxazosin 8 mg p.o. daily, finasteride 5 mg p.o. daily, hydroxyurea 500 mg daily, quinapril 40 mg p.o. daily, Xarelto 10 mg p.o. daily, and valsartan 160 mg daily. SOCIAL HISTORY: Denies any tobacco, alcohol, or illicit drug use. FAMILY HISTORY: No premature coronary artery disease in first-degree relatives. REVIEW OF SYSTEMS: HEENT: Denies any headache, diplopia, or blurred vision. CONSTITUTIONAL: Denies any fever, chills, night sweats, or weight loss or weight gain. CARDIOVASCULAR: Intermittent chest pain described as sharp and no associated shortness of breath. No syncope. PULMONARY: Denies any cough, hemoptysis, or wheezing. GASTROINTESTINAL: Denies any nausea, vomiting, diarrhea, constipation, abdominal pain, or GI bleed. GENITOURINARY: Denies any hematuria, dysuria, or incontinence. NEUROLOGIC: Denies any motor dysfunction, sensory deficit, or altered speech. MUSCULOSKELETAL: Complains of left thigh pain. PHYSICAL EXAMINATION: VITAL SIGNS: Blood pressure was 162/89, respirations 16, pulse of 118, temperature 97.7 degrees Fahrenheit, and O2 saturation of 96% on room air. GENERAL: The patient is a very pleasant 87-year-old gentleman, in no apparent respiratory distress. Awake and alert x4. HEENT: Atraumatic, normocephalic. Anicteric. Pupils are equal, round, and reactive to light and accommodation. Extraocular muscles intact. NECK: JVP is less than 5 cm. No carotid bruit. Carotid upstrokes 2+ bilaterally. CARDIOVASCULAR: Normal S1, S2. Irregularly irregular rhythm. Tachycardic. No murmurs, gallops, or rubs. LUNGS: Clear to auscultation bilaterally. ABDOMEN: Soft, nontender, and nondistended. No hepatosplenomegaly. Positive bowel sounds. EXTREMITIES: No evidence of edema, clubbing, or cyanosis. LABORATORY AND DIAGNOSTIC DATA: A 12-lead electrocardiogram shows atrial fibrillation with rapid ventricular response at a rate of 142, low-voltage QRS, abnormal EKG. Laboratory findings, WBC is 9.5, hemoglobin of 14.0, hematocrit of 44.4, and platelet count is 592,000. Sodium is 139, potassium is 3.7, chloride 102, bicarbonate 25, BUN of 19, creatinine 1.6, glucose is 110, and calcium is 9.5. Chest x-ray showed cardiomegaly and presence of right midlung mass measuring upto about 3.[address] of the chest is recommended. No evidence of pulmonary edema. ASSESSMENT AND PLAN: The patient is a very unfortunate 87-year-old gentleman, seen in Cardiology consultation at the request of Dr. Sanabria. 1. Atrial fibrillation with rapid ventricular response. I would like to continue diltiazem and up titrate to keep the heart rate below 90. 2. We will continue with his Xarelto, was given as an outpatient. 3. History of hypertension, on valsartan and diltiazem. 4. I would like to order 2D echocardiography for assessment of left ventricular systolic and diastolic function. 5. Further therapeutic and diagnostic decision will be based on the results of 2D echocardiography. I would like to thank, Dr. Sanabria, for allowing me to participate in the care of this patient. Terrance Vogt M.D. DR: CIERRA JOB#: [id number] CC:
[2017-09-26] VITALS (7 sets, daily range): BP systolic 128–159; BP diastolic 80–99
--- NOTE | 2017-09-26 03:02 | Consultation ---
DATE OF CONSULTATION: 09/24/2017 HEMATOLOGY/ONCOLOGY CONSULTATION CONSULTING PHYSICIAN: Duc Mills M.D. REFERRING PHYSICIAN: Scotty Sanabria M.D. REASON FOR CONSULTATION: Evaluation of stage IV lung cancer. IDENTIFYING DATA: Dear Dr. Sanabria: The patient is a pleasant 87-year-old male with past medical history significant for atrial fibrillation, hypertension, and BPH as well as CKD, at this time presents to the hospital with unsteady gait, fatigue, weakness, shortness of breath, pain on the left side of the body for the last couple of weeks that has been getting worse. Evaluation in the ER showed the patient had uncontrolled atrial fibrillation, currently is better controlled. The patient has a history of dementia and does not recall any other medical history that is significant. CAT scan of the brain completed, which showed moderate atrophy of the brain, evidence of chronic small disease changes. CAT scan of the chest completed, shows a 4 cm mass in the right lower lobe consistent with bronchogenic carcinoma, hilar mediastinal adenopathy, lytic metastasis in the T10 vertebra, multiple liver and renal cysts. Hematology Service was consulted for evaluation of metastatic colon cancer. PAST MEDICAL HISTORY: Hypertension, BPH, and atrial fibrillation. PAST SURGICAL HISTORY: None noted. CURRENT MEDICATIONS: Protonix, hydroxyurea, Proscar, Cardura, diltiazem, and aspirin. ALLERGIES: To aspirin. SOCIAL HISTORY: No alcohol, tobacco, or illicit drug use. FAMILY HISTORY: Noncontributory. REVIEW OF SYSTEMS: A 12-point review of systems otherwise is negative. PHYSICAL EXAMINATION: VITAL SIGNS: Reviewed. GENERAL: No acute distress. PULMONARY: Decreased breath sounds. CARDIOVASCULAR: Regular rate. No S3 or S4. ABDOMEN: Soft, nontender, and nondistended. EXTREMITIES: A 1+ edema. LABORATORY DATA: WBC of 9.6, hemoglobin 15.4, and platelet count 630,000. ESR 54. INR . CRP of 4.5. TSH of 1.78. Immunology reviewed. c-ANCA and p-ANCA are pending. MALENA is pending. ASSESSMENT AND RECOMMENDATIONS: 1. Stage IV lung cancer. The patient with evidence of metastatic disease to the bones as well as metastatic disease that involves the right middle lobe of the lung, hilar mediastinal adenopathy. At this time obtain CT-guided biopsy. Pulmonary team has been consulted as well. Currently, Lovenox is on hold. I appreciate consultation with Dr. Ace. 2. Thrombocytosis, likely secondary to underlying anemia. 3. Anemia, secondary to chronic disease. Continue to closely monitor. 4. Bony metastasis. Consider Zometa as an outpatient to prevent fractures. 5. Presyncopal episode. No evidence of metastasis to the brain is noted at this time. 6. Progressive dementia over the past several years. 7. Atrial fibrillation, on Xarelto in the past. I appreciate the consultation. Duc Mills M.D. DR: RAS JOB#: [id number] CC:
[2017-09-26] MEDS: dilTIAZem HCl 60mg tab ORAL SCH ×2 (05:37→14:28)
[2017-09-26] MEDS: Aspirin Baby 81mg ORAL SCH (07:59)
[2017-09-26] MEDS: Doxazosin 4mg tab ORAL SCH (07:59)
[2017-09-26] MEDS: Allopurinol 100mg Tab ORAL SCH (07:59)
[2017-09-26] MEDS: Hydroxyurea 500mg cap ORAL SCH (07:59)
[2017-09-26] MEDS: Enoxaparin 80mg Inj SUBQ SCH ×3 (08:32→21:24)
[2017-09-26] MEDS: Lactulose 20gm/30ml UDC ORAL PRN (09:00)
--- NOTE | 2017-09-26 09:08 | General Progress Note ---
Assessment/Plan Status: stable Assessment/Plan 1. Disequilibrium, possibility of brain met, cant be excluded 2. Atrial fibrillation, 3. Acute encephalopathy - possibility of brain met, cant be excluded 4. New Lung CA in RLL 4. Dementia. 5. Hypertension. 6. Benign prostatic hypertrophy. 7. Renal failure, age indeterminate. 8. Gastrointestinal and deep vein thrombosis prophylaxes. plan: Cardiology Neurology Notes reviewed start xarelto Hem/onch consult- Diagnosis in progress TREATMENT/STAGING WILL BE DEFERRED TO OUT PATIENT New Lung CA in RLL- based on imaging features SNIF placement once medically clear Subjective ROS Limited/Unobtainable: No Constitutional: Reports: weakness HEENT: Reports: no symptoms Cardiovascular: Reports: no symptoms Allergies: Coded Allergies: ASPIRIN (Verified Allergy, Unknown, 09/22/17) Subjective Left sided pain Objective Last 24 Hour Vital Signs Date Time Temp Pulse Resp B/P (MAP) Pulse Ox O2 Delivery O2 Flow Rate FiO2 09/26/17 08:37 97.7 119 20 155/81 99 Room Air 09/26/17 05:37 104 150/80 09/26/17 04:00 97.7 93 20 150/80 Room Air 09/26/17 04:00 104 09/26/17 00:00 97.7 91 20 128/89 97 Room Air 09/26/17 00:00 97 09/25/17 22:06 120 154/90 09/25/17 20:00 107 09/25/17 20:00 98.1 82 20 154/90 100 Room Air 09/25/17 16:50 92 09/25/17 16:14 97.2 117 18 135/87 95 Room Air 09/25/17 13:48 87 142/77 09/25/17 12:00 97.7 87 18 142/77 95 Room Air 09/25/17 11:33 91 Laboratory Tests 09/25/17 18:10: Fibrinogen 662H, Jak2 V617F Mutation Detection [Pending], JAK2 V617F Mutation Background [Pending], JAK2 V617F Reviewed By [Pending], Iron Level 34L, Total Iron Binding Capacity 187L, Percent Iron Saturation 18, Unsaturated Iron Binding 153, Ferritin 273, Alpha Fetoprotein [Pending], CA 15-3 Antigen [Pending ], Folate 10.7 Height (Feet): 5 Height (Inches): 11.00 Weight (Pounds): 188 General Appearance: no apparent distress EENT: PERRL/EOMI Neck: supple Cardiovascular: normal rate Respiratory/Chest: rhonchi - right Abdomen: soft Extremities: non-tender Neurologic: director fraud II-XII grossly normal Scotty Sanabria MD Sep 26, 2017 09:08
[2017-09-26 10:16] LABS: CA15-3 59.7 U/mL (0.0-25.0)
--- NOTE | 2017-09-26 13:24 | Pulmonology Progress Note ---
Assessment/Plan Problems: (1) Lung cancer metastatic to bone (2) Atrial fibrillation with rapid ventricular response (3) Chest pain (4) CKD (chronic kidney disease) Assessment/Plan ASSESSMENT: -RML 4 cm density with hilar + mediastinal LAD, concerning for a primary lung malignancy -Moderate R sided pleural effusion -Possible T10 lytic lesion -AF, admitted with RVR, now rate controlled and on A/C -Pulmonary HTN (on TTE) -Extensive prior tobacco use -Possible underlying COPD -LE pain and recent immobility -BRAULIO on CKD -BPH PLAN: -LMWH held --> F/U CTGbx and onc recs, should have definitive mediastinal staging even if the lung path is + for CA -PET as outpatient -Will need outpatient PFT's -Optimize pulmonary hygiene/mobilize as tolerated -PRN HHN's -Rate control (dilt) per cards -Repeat TTE in the future once acute issues resolved and if PASP truly elevated can w/u further at that time -F/U neuro recs, consider PT, consider ortho eval -DVT Px: A/C Ziggy Ace MD, [facility] Pulmonary & Critical Care Medicine [address], [address] [place] [address] Subjective Allergies: Coded Allergies: ASPIRIN (Verified Allergy, Unknown, 09/22/17) Subjective AFVSS, rate controlled Refused CTGBx but now amenable No cough, no SOB, no wheezing, no F/C Onc eval noted Objective Last 24 Hour Vital Signs Date Time Temp Pulse Resp B/P (MAP) Pulse Ox O2 Delivery O2 Flow Rate FiO2 09/26/17 11:52 97.7 96 18 152/98 99 Room Air 09/26/17 11:45 92 09/26/17 08:37 97.7 119 20 155/81 99 Room Air 09/26/17 07:43 104 09/26/17 05:37 104 150/80 09/26/17 04:00 97.7 93 20 150/80 Room Air 09/26/17 04:00 104 09/26/17 00:00 97.7 91 20 128/89 97 Room Air 09/26/17 00:00 97 09/25/17 22:06 120 154/90 09/25/17 20:00 107 09/25/17 20:00 98.1 82 20 154/90 100 Room Air 09/25/17 16:50 92 09/25/17 16:14 97.2 117 18 135/87 95 Room Air 09/25/17 13:48 87 142/77 Intake and Output 09/25/17 09/26/17 19:00 07:00 Intake Total 480 ml 300 ml Output Total 200 ml 225 ml Balance 280 ml 75 ml Intake Oral 480 ml 300 ml Output Urine Total 200 ml 225 ml # Voids 2 General Appearance: WD/WN, no acute distress HEENT: normocephalic, atraumatic, anicteric, mucous membranes moist Respiratory/Chest: chest wall non-tender, lungs clear, normal breath sounds, no respiratory distress, no accessory muscle use Cardiovascular: irregularly irregular Abdomen: normal bowel sounds, soft, non tender, no organomegaly, non distended , no mass Extremities: no cyanosis, no clubbing, no edema Laboratory Tests 09/25/17 18:10: Fibrinogen 662H, Jak2 V617F Mutation Detection [Pending], JAK2 V617F Mutation Background [Pending], JAK2 V617F Reviewed By [Pending], Iron Level 34L, Total Iron Binding Capacity 187L, Percent Iron Saturation 18, Unsaturated Iron Binding 153, Ferritin 273, Alpha Fetoprotein 2.9, CA 15-3 Antigen 59.7H, Folate 10.7 Current Medications Medications (Trade) Dose Ordered Sig/Alfonzo Route PRN Reason Start Time Stop Time Status Last Admin Dose Admin Acetaminophen (Tylenol) 500 mg Q6H PRN ORAL Mild Pain/Temp > 100.5 09/22/17 23:00 10/22/17 22:59 Allopurinol (Zyloprim) 100 mg DAILY ORAL 09/23/17 09:00 10/23/17 08:59 09/26/17 07:59 Aspirin (ASA) 81 mg DAILY ORAL 09/23/17 09:00 10/23/17 08:59 09/26/17 07:59 Dextrose (Dextrose 50%) STAT PRN IV Hypoglycemia 09/22/17 23:00 10/22/17 22:59 Diltiazem HCl (Cardizem) 60 mg EVERY 8 HOURS ORAL 09/25/17 08:00 10/25/17 07:59 09/26/17 05:37 Doxazosin Mesylate (Cardura) 8 mg DAILY ORAL 09/23/17 09:00 10/23/17 08:59 09/26/17 07:59 Enoxaparin Sodium (Lovenox) 80 mg EVERY 12 HOURS SUBQ 09/24/17 21:00 10/24/17 20:59 09/26/17 08:32 Finasteride (Proscar) 5 mg DAILY ORAL 09/23/17 09:00 10/23/17 08:59 09/26/17 07:59 Hydroxyurea (Hydrea) 500 mg DAILY ORAL 09/23/17 09:00 09/28/17 08:59 09/26/17 07:59 Lactulose (Cephulac) 20 gm THREE TIMES A DAY PRN ORAL Constipation 09/26/17 07:15 10/26/17 07:14 09/26/17 09:00 Morphine Sulfate (Morphine Sulfate) 2 mg Q6HR PRN IVP Severe Pain (Pain Scale 7-10) 09/22/17 22:45 09/29/17 22:44 09/23/17 10:57 Pantoprazole (Protonix) 40 mg DAILY ORAL 09/23/17 09:00 10/23/17 08:59 09/26/17 08:31 Zolpidem Tartrate (Ambien) 5 mg HSPRN PRN ORAL Insomnia 09/23/17 20:45 09/30/17 20:44 09/25/17 22:09 ZIGGY ACE M.D. Sep 26, 2017 13:24
[2017-09-26 15:38] LABS: PROTHROMBIN TIME 10.5 SEC (9.30-11.50)
--- NOTE | 2017-09-26 21:02 | General Progress Note ---
Assessment/Plan Assessment/Plan ASSESSMENT AND RECOMMENDATIONS: 1. 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 --> CT guided biopsy scheduled for tomorrow per Dr. Lester 2. Thrombocytosis. JAK2 pending 3. Anemia, secondary to chronic disease. Continue to closely monitor. 4. Bony metastasis. Consider Zometa as an outpatient to prevent fractures. 5. Presyncopal episode. No evidence of metastasis to the brain is noted at this time. 6. Progressive dementia over the past several years. Subjective Allergies: Coded Allergies: ASPIRIN (Verified Allergy, Unknown, 09/22/17) All Systems: reviewed and negative except above Subjective NAD Objective Last 24 Hour Vital Signs Date Time Temp Pulse Resp B/P (MAP) Pulse Ox O2 Delivery O2 Flow Rate FiO2 09/26/17 17:03 97.9 88 18 143/99 98 Room Air 09/26/17 15:11 107 09/26/17 14:28 96 152/98 09/26/17 11:52 97.7 96 18 152/98 99 Room Air 09/26/17 11:45 92 09/26/17 08:37 97.7 119 20 155/81 99 Room Air 09/26/17 07:43 104 09/26/17 05:37 104 150/80 09/26/17 04:00 97.7 93 20 150/80 Room Air 09/26/17 04:00 104 09/26/17 00:00 97.7 91 20 128/89 97 Room Air 09/26/17 00:00 97 09/25/17 22:06 120 154/90 Intake and Output 09/25/17 09/26/17 19:00 07:00 Intake Total 480 ml 300 ml Output Total 200 ml 225 ml Balance 280 ml 75 ml Intake Oral 480 ml 300 ml Output Urine Total 200 ml 225 ml # Voids 2 Laboratory Tests 09/26/17 15:00: Prothrombin Time 10.5, Prothromb Time International Ratio 1.0, Activated Partial Thromboplast Time 35H Height (Feet): 5 Height (Inches): 11.00 Weight (Pounds): 188 General Appearance: no apparent distress EENT: normal ENT inspection Neck: normal alignment Cardiovascular: normal peripheral pulses Respiratory/Chest: chest wall non-tender Skin: normal pigmentation Kleynberg,Duc L. Sep 26, 2017 21:02
[2017-09-26] MEDS: dilTIAZem HCl 30mg tab ORAL SCH (21:26)
[2017-09-26] MEDS: Zolpidem 5mg tab ORAL PRN (23:03)
--- NOTE | 2017-09-26 23:36 | Cardiology Progress Note ---
Assessment/Plan Assessment/Plan 1. Atrial fibrillation with RVR, increase cardizem, start digoxin, Xarelto on hold. 2. HTN, on cardizem 3. Right lung mass Subjective Subjective Atrial fibrillation with RVR at 112. Objective Last 24 Hour Vital Signs Date Time Temp Pulse Resp B/P (MAP) Pulse Ox O2 Delivery O2 Flow Rate FiO2 09/26/17 21:26 118 143/99 09/26/17 21:00 151/82 09/26/17 20:00 98.1 121 20 159/98 98 Room Air 09/26/17 17:03 97.9 88 18 143/99 98 Room Air 09/26/17 15:11 107 09/26/17 14:28 96 152/98 09/26/17 11:52 97.7 96 18 152/98 99 Room Air 09/26/17 11:45 92 09/26/17 08:37 97.7 119 20 155/81 99 Room Air 09/26/17 07:43 104 09/26/17 05:37 104 150/80 09/26/17 04:00 97.7 93 20 150/80 Room Air 09/26/17 04:00 104 09/26/17 00:00 97.7 91 20 128/89 97 Room Air 09/26/17 00:00 97 Intake and Output 09/25/17 09/26/17 19:00 07:00 Intake Total 480 ml 300 ml Output Total 200 ml 225 ml Balance 280 ml 75 ml Intake Oral 480 ml 300 ml Output Urine Total 200 ml 225 ml # Voids 2 2D Echo: LVEF 60%, Mod ANNE MARIE, RVSP 62 mmHg, Mod AR/MR Laboratory Tests Test 09/26/17 15:00 Prothrombin Time 10.5 SEC (9.30-11.50) Prothromb Time International Ratio 1.0 (0.9-1.1) Activated Partial Thromboplast Time 35 SEC (23-33) H Objective HEENT: normocephalic, atraumatic, PERRL, EOMI, moist mucus membranes Neck: No JVD, no carotid bruit Respiratory: normal inspection, lungs clear Cardiovascular: no edema, no JVD, normal capillary refill, tachycardia, irregularly irregular Gastrointestinal: normal inspection, normal bowel sounds, non tender, soft, no mass, no peritonitis, non-distended, no guarding, no hernia, no pulsatile mass Musculoskeletal: left thigh, focal tenderness to mid thigh, no edema, clubbing or cyanosis, Mild old abrasions to patella. SYEDA GUZMÁN Sep 26, 2017 23:36
[2017-09-27] VITALS (10 sets, daily range): BP systolic 114–154; BP diastolic 72–104
[2017-09-27] MEDS: dilTIAZem HCl 30mg tab ORAL SCH ×3 (05:34→21:51)
[2017-09-27] MEDS: Enoxaparin 80mg Inj SUBQ SCH (09:00)
[2017-09-27] MEDS: Aspirin Baby 81mg ORAL SCH (09:48)
[2017-09-27] MEDS: Hydroxyurea 500mg cap ORAL SCH (09:49)
[2017-09-27] MEDS: Doxazosin 4mg tab ORAL SCH (09:49)
[2017-09-27] MEDS: Digoxin 0.125mg tab ORAL SCH (09:51)
[2017-09-27] MEDS: Allopurinol 100mg Tab ORAL SCH (09:51)
[2017-09-27] MEDS ORDERED: Lidocaine 1% Plain 30 ml INJ PRN (11:15)
--- NOTE | 2017-09-27 11:30 | Pre-Procedure Note/Attestation ---
Pre-Procedure Note/Attestation Complete Prior to Procedure Planned Procedure: right Procedure Narrative: CT guided lung biopsy Indications for Procedure Pre-Operative Diagnosis: R lung mass Attestation I attest that I discussed the nature of the procedure; its benefits; risks and complications; and alternatives (and the risks and benefits of such alternatives ), prior to the procedure, with the patient (or the patient's legal eligibility services representative). I attest that, if there was a reasonable possibility of needing a blood transfusion, the patient (or the patient's legal eligibility services representative) was given the [facility] standardized written summary, pursuant to the Lonnie Blayne Blood Safety Act ([place] Health and Safety Code # 1645, as amended). I attest that I re-evaluated the patient just prior to the surgery and that there has been no change in the patient's H&P, except as documented below: MADELYN SANDERS M.D. Sep 27, 2017 11:30
--- NOTE | 2017-09-27 11:54 | General Progress Note ---
Assessment/Plan Status: stable Assessment/Plan 1. Disequilibrium, possibility of brain met, cant be excluded 2. Atrial fibrillation, 3. Acute encephalopathy - possibility of brain met, cant be excluded 4. New Lung CA in RLL 4. Dementia. 5. Hypertension. 6. Benign prostatic hypertrophy. 7. Renal failure, age indeterminate. 8. Gastrointestinal and deep vein thrombosis prophylaxes. plan: Cardiology Neurology Notes reviewed start xarelto Hem/onch consult- Diagnosis in progress TREATMENT/STAGING WILL BE DEFERRED TO OUT PATIENT New Lung CA in RLL- based on imaging features SNIF placement once medically clear Subjective ROS Limited/Unobtainable: No Constitutional: Reports: malaise HEENT: Reports: no symptoms Cardiovascular: Reports: no symptoms Respiratory: Reports: no symptoms Allergies: Coded Allergies: ASPIRIN (Verified Allergy, Unknown, 09/22/17) Subjective Left sided pain Objective Last 24 Hour Vital Signs Date Time Temp Pulse Resp B/P (MAP) Pulse Ox O2 Delivery O2 Flow Rate FiO2 09/27/17 09:51 94 09/27/17 08:00 97.3 94 18 137/87 99 Room Air 09/27/17 05:34 114 147/78 09/27/17 04:00 97.5 113 20 147/78 96 Room Air 09/27/17 04:00 114 09/27/17 00:17 98.1 09/27/17 00:00 90 09/27/17 00:00 97.7 109 20 135/101 100 Room Air 09/26/17 21:26 118 143/99 09/26/17 21:00 151/82 09/26/17 20:00 96 09/26/17 20:00 98.1 121 20 159/98 98 Room Air 09/26/17 17:03 97.9 88 18 143/99 98 Room Air 09/26/17 15:11 107 09/26/17 14:28 96 152/98 Intake and Output 09/26/17 09/27/17 19:00 07:00 Intake Total 240 ml 240 ml Balance 240 ml 240 ml Intake Oral 240 ml 240 ml # Voids 2 3 Laboratory Tests 09/26/17 15:00: Prothrombin Time 10.5, Prothromb Time International Ratio 1.0, Activated Partial Thromboplast Time 35H Height (Feet): 5 Height (Inches): 11.00 Weight (Pounds): 188 General Appearance: no apparent distress EENT: PERRL/EOMI Neck: supple Cardiovascular: normal rate Respiratory/Chest: rhonchi - bilaterally Abdomen: soft Extremities: non-tender 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
[2017-09-27] MEDS: Eliquis 2.5mg tablet ORAL SCH ×2 (12:00→18:04)
--- NOTE | 2017-09-27 12:11 | Brief Operative Note ---
Immediate Post Operative Note Operative Note Chief Complaint: SOB Pre-op Diagnosis: R lung mass Procedure: CT guided lung biopsy Post-op Diagnosis: same Findings: consistent w/pre-op dx studies Surgeon: Enrico SANDERS Anesthesia: local Specimen: yes - 2 18 G cores Complications: none Condition: stable Fluids: none Implant(s) used?: No MADELYN SANDERS M.D. Sep 27, 2017 12:11
--- NOTE | 2017-09-27 12:45 | Pulmonology Progress Note ---
Assessment/Plan Problems: (1) Lung cancer metastatic to bone (2) Atrial fibrillation with rapid ventricular response (3) Chest pain (4) CKD (chronic kidney disease) Assessment/Plan ASSESSMENT: -RML 4 cm density with hilar + mediastinal LAD, concerning for a primary lung malignancy S/P CTGBx 09/27/17 -Moderate R sided pleural effusion -Possible T10 lytic lesion -AF, admitted with RVR, now rate controlled and on A/C -Pulmonary HTN (on TTE) -Extensive prior tobacco use -Possible underlying COPD -LE pain and recent immobility -BRAULIO on CKD -BPH PLAN: -F/U CTGbx path and onc recs, should have definitive mediastinal staging even if the lung path is + for CA -PET as outpatient -Will need outpatient PFT's -Optimize pulmonary hygiene/mobilize as tolerated -PRN HHN's -Rate control (dilt) per cards -Repeat TTE in the future once acute issues resolved and if PASP truly elevated can w/u further at that time -F/U neuro recs, consider PT, consider ortho eval -DVT Px: A/C Ziggy Ace MD, [facility] Pulmonary & Critical Care Medicine [address], [address] [place] [address] Subjective Allergies: Coded Allergies: ASPIRIN (Verified Allergy, Unknown, 09/22/17) Subjective AFVSS, rate controlled AF S/P CTGBx No cough, no SOB, no wheezing, no F/C Objective Last 24 Hour Vital Signs Date Time Temp Pulse Resp B/P (MAP) Pulse Ox O2 Delivery O2 Flow Rate FiO2 09/27/17 12:10 96 18 154/89 100 Room Air 09/27/17 12:03 110 18 147/86 99 Room Air 09/27/17 12:00 117 18 146/104 99 Room Air 09/27/17 11:47 115 09/27/17 09:51 94 09/27/17 08:00 97.3 94 18 137/87 99 Room Air 09/27/17 05:34 114 147/78 09/27/17 04:00 97.5 113 20 147/78 96 Room Air 09/27/17 04:00 114 09/27/17 00:17 98.1 09/27/17 00:00 90 09/27/17 00:00 97.7 109 20 135/101 100 Room Air 09/26/17 21:26 118 143/99 09/26/17 21:00 151/82 09/26/17 20:00 96 09/26/17 20:00 98.1 121 20 159/98 98 Room Air 09/26/17 17:03 97.9 88 18 143/99 98 Room Air 09/26/17 15:11 107 09/26/17 14:28 96 152/98 Intake and Output 09/26/17 09/27/17 19:00 07:00 Intake Total 240 ml 240 ml Balance 240 ml 240 ml Intake Oral 240 ml 240 ml # Voids 2 3 General Appearance: WD/WN, no acute distress HEENT: normocephalic, atraumatic, mucous membranes moist Respiratory/Chest: chest wall non-tender, lungs clear, normal breath sounds, no respiratory distress, no accessory muscle use Cardiovascular: normal peripheral pulses, normal rate, regular rhythm Abdomen: normal bowel sounds, soft, non tender, no organomegaly, non distended Extremities: no cyanosis, no clubbing, no edema Laboratory Tests 09/26/17 15:00: Prothrombin Time 10.5, Prothromb Time International Ratio 1.0, Activated Partial Thromboplast Time 35H Current Medications Medications (Trade) Dose Ordered Sig/Alfonzo Route PRN Reason Start Time Stop Time Status Last Admin Dose Admin Acetaminophen (Tylenol) 500 mg Q6H PRN ORAL Mild Pain/Temp > 100.5 09/22/17 23:00 10/22/17 22:59 09/26/17 23:06 Allopurinol (Zyloprim) 100 mg DAILY ORAL 09/23/17 09:00 10/23/17 08:59 09/27/17 09:51 Apixaban (Eliquis) 2.5 mg BID ORAL 09/27/17 12:00 10/27/17 11:59 Aspirin (ASA) 81 mg DAILY ORAL 09/23/17 09:00 10/23/17 08:59 09/27/17 09:48 Dextrose (Dextrose 50%) STAT PRN IV Hypoglycemia 09/22/17 23:00 10/22/17 22:59 Digoxin (Lanoxin) 0.125 mg DAILY ORAL 09/27/17 09:00 10/27/17 08:59 09/27/17 09:51 Diltiazem HCl (Cardizem) 90 mg EVERY 8 HOURS ORAL 09/26/17 22:00 10/26/17 21:59 09/27/17 05:34 Doxazosin Mesylate (Cardura) 8 mg DAILY ORAL 09/23/17 09:00 10/23/17 08:59 09/27/17 09:49 Finasteride (Proscar) 5 mg DAILY ORAL 09/23/17 09:00 10/23/17 08:59 09/27/17 09:48 Hydroxyurea (Hydrea) 500 mg DAILY ORAL 09/23/17 09:00 09/28/17 08:59 09/27/17 09:49 Lactulose (Cephulac) 20 gm THREE TIMES A DAY PRN ORAL Constipation 09/26/17 07:15 10/26/17 07:14 09/26/17 09:00 Lidocaine HCl (Xylocaine 1% 30ml) 30 ml ONCE PRN INJ FOR BIOPSY 09/27/17 11:15 09/27/17 23:59 Morphine Sulfate (Morphine Sulfate) 2 mg Q6HR PRN IVP Severe Pain (Pain Scale 7-10) 09/22/17 22:45 09/29/17 22:44 09/23/17 10:57 Pantoprazole (Protonix) 40 mg DAILY ORAL 09/23/17 09:00 10/23/17 08:59 09/27/17 09:51 Zolpidem Tartrate (Ambien) 5 mg HSPRN PRN ORAL Insomnia 09/23/17 20:45 09/30/17 20:44 09/26/17 23:03 ZIGGY ACE M.D. Sep 27, 2017 12:45
--- NOTE | 2017-09-27 15:17 | Diagnostic Imaging Report ---
Indication: Biopsy requested for right lung mass demonstrated on prior CT scan Technique: Informed procedure timeout performed. Consent obtained prior to commencement of the procedure. Localized acquisitions obtained through the chest. Then puncture site sterilely prepped and draped. Local anesthesia with 1% lidocaine. Under CT guidance, a 17-gauge guiding needle was directed to the periphery of the lesion. Total of 2 core specimens were then obtained using a coaxial inserted 18-gauge achieve biopsy gun. Specimens were submitted to pathology. Initial smears indicated adequate cellularity, per pathologist. Follow-up CT was performed. The patient tolerated the procedure well, without immediate complication. Total dose length product 1996 mGycm. CTDIvol(s) 28, 28, 29, 29 mGy. Radiation dose was minimized using automated exposure control Comparison: Reference made to prior CT scan dated 09/24/2017 Findings: Intraprocedural images document needle placement within the periphery of the targeted lesion. Lesion image demonstrates tiny pneumothorax. No significant bleeding along the puncture tract. Impression: CT-guided right lung biopsy, as described. Final pathology pending The CT scanner at [facility] is accredited by the [employer] and the scans are performed using protocols designed to limit radiation exposure to as low as reasonably achievable to attain images of sufficient resolution adequate for diagnostic evaluation.
--- NOTE | 2017-09-27 15:24 | Diagnostic Imaging Report ---
Indication: Cough, status post lung biopsy Technique: One view of the chest Comparison: 09/22/2017 Findings: Increasing opacity at the right lung base likely reflects slightly increasing pleural fluid demonstrated on localizer images for recent chest biopsy. Also likely in part artifactual due to expiratory imaging on the current exam Right perihilar mass is again demonstrated. There is also some compressive atelectasis in the retrocardiac region. No pneumothorax demonstrated Impression: No evidence of postbiopsy pneumothorax Suspect increasing right pleural effusion
--- NOTE | 2017-09-27 15:59 | Diagnostic Imaging Report ---
Indication: Status post lung biopsy Technique: One view of the chest Comparison: 3 1/2 hours earlier Findings: Tiny sliver of a pneumothorax is seen at the right lung apex, approximately 2 mm thick. There is decreased right basilar hazy opacity, may reflect differences in positioning or degree of inspiration. Right perihilar mass is again demonstrated. Impression: Tiny right apical pneumothorax. Will order follow-up radiograph for the morning
--- NOTE | 2017-09-27 17:42 | General Progress Note ---
Assessment/Plan Assessment/Plan ASSESSMENT AND RECOMMENDATIONS: 1. 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 --> S/p CT guided biopsy, awaiting final pathology report 2. Thrombocytosis. JAK2 pending 3. Anemia, secondary to chronic disease. Continue to closely monitor. 4. Bony metastasis. Consider Zometa as an outpatient to prevent fractures. 5. Presyncopal episode. No evidence of metastasis to the brain is noted at this time. 6. Progressive dementia over the past several years. Subjective Hematologic/Lymphatic: Reports: anemia Allergies: Coded Allergies: ASPIRIN (Verified Allergy, Unknown, 09/22/17) All Systems: reviewed and negative except above Subjective s/p biopsy Objective Last 24 Hour Vital Signs Date Time Temp Pulse Resp B/P (MAP) Pulse Ox O2 Delivery O2 Flow Rate FiO2 09/27/17 16:00 97.5 111 18 114/76 96 Room Air 09/27/17 14:55 96 154/89 09/27/17 12:10 96 18 154/89 100 Room Air 09/27/17 12:03 110 18 147/86 99 Room Air 09/27/17 12:00 117 18 146/104 99 Room Air 09/27/17 12:00 96 09/27/17 11:47 115 09/27/17 09:51 94 09/27/17 08:00 97.3 94 18 137/87 99 Room Air 09/27/17 08:00 89 09/27/17 05:34 114 147/78 09/27/17 04:00 97.5 113 20 147/78 96 Room Air 09/27/17 04:00 114 09/27/17 00:17 98.1 09/27/17 00:00 90 09/27/17 00:00 97.7 109 20 135/101 100 Room Air 09/26/17 21:26 118 143/99 09/26/17 21:00 151/82 09/26/17 20:00 96 09/26/17 20:00 98.1 121 20 159/98 98 Room Air Intake and Output 09/26/17 09/27/17 19:00 07:00 Intake Total 240 ml 240 ml Balance 240 ml 240 ml Intake Oral 240 ml 240 ml # Voids 2 3 Height (Feet): 5 Height (Inches): 11.00 Weight (Pounds): 188 General Appearance: no apparent distress EENT: normal ENT inspection Neck: non-tender Cardiovascular: normal peripheral pulses Extremities: normal range of motion Edema: trace edema Duc [place] Sep 27, 2017 17:42
--- NOTE | 2017-09-27 23:10 | Consultation ---
History of Present Illness General Date patient seen: Sep 26, 2017 Chief Complaint: Pain Present Illness HPI 87-year-old male with past medical history of atrial fibrillation, hypertension, and BPH,CKD, presents to the hospital with unsteady gait, fatigue, weakness, shortness of breath, pain on the left side of the body for the last couple of weeks that has been getting worse. the pt was anxious and has memory impairment Allergies: Coded Allergies: ASPIRIN (Verified Allergy, Unknown, 09/22/17) Medication History Scheduled Allopurinol* (Allopurinol*), 100 MG ORAL DAILY, (Reported) Amlodipine Besylate (Norvasc), 10 MG ORAL DAILY, (Reported) Aspirin* (Aspir 81*), 81 MG ORAL DAILY, (Reported) Doxazosin Mesylate (Doxazosin Mesylate), 8 MG ORAL DAILY, (Reported) Finasteride (Finasteride), 5 MG ORAL DAILY, (Reported) Rivaroxaban (Xarelto*), 10 MG ORAL DAILY, (Reported) Valsartan (Diovan), 160 MG ORAL DAILY, (Reported) Scheduled PRN Acetaminophen* (Tylenol Extra Strength*), 500 MG ORAL Q6H PRN for Mild Pain/ Temp > 100.5, (Reported) Miscellaneous Medications Diltiazem Hcl (Diltiazem 24HR Cd), 180 MG PO, (Reported) Hydroxyurea (Hydroxyurea), 500 MG PO, (Reported) Quinapril Hcl (Quinapril Hcl), 40 MG PO, (Reported) Patient History Healthcare decision maker Resuscitation status Full Code Advanced Directive on File Physical Exam Last 24 Hour Vital Signs Date Time Temp Pulse Resp B/P (MAP) Pulse Ox O2 Delivery O2 Flow Rate FiO2 09/27/17 21:51 80 134/72 09/27/17 19:30 96.8 80 20 134/72 95 Room Air 09/27/17 16:00 97.5 111 18 114/76 96 Room Air 09/27/17 16:00 131 09/27/17 14:55 96 154/89 09/27/17 12:10 96 18 154/89 100 Room Air 09/27/17 12:03 110 18 147/86 99 Room Air 09/27/17 12:00 117 18 146/104 99 Room Air 09/27/17 12:00 96 09/27/17 11:47 115 09/27/17 09:51 94 09/27/17 08:00 97.3 94 18 137/87 99 Room Air 09/27/17 08:00 89 09/27/17 05:34 114 147/78 09/27/17 04:00 97.5 113 20 147/78 96 Room Air 09/27/17 04:00 114 09/27/17 00:17 98.1 09/27/17 00:00 90 09/27/17 00:00 97.7 109 20 135/101 100 Room Air Intake and Output 09/26/17 09/27/17 19:00 07:00 Intake Total 240 ml 240 ml Balance 240 ml 240 ml Intake Oral 240 ml 240 ml # Voids 2 3 Height (Feet): 5 Height (Inches): 11.00 Weight (Pounds): 188 Medications Current Medications Medications (Trade) Dose Ordered Sig/Alfonzo Route PRN Reason Start Time Stop Time Status Last Admin Dose Admin Acetaminophen (Tylenol) 500 mg Q6H PRN ORAL Mild Pain/Temp > 100.5 09/22/17 23:00 10/22/17 22:59 09/26/17 23:06 Allopurinol (Zyloprim) 100 mg DAILY ORAL 09/23/17 09:00 10/23/17 08:59 09/27/17 09:51 Apixaban (Eliquis) 2.5 mg BID ORAL 09/27/17 12:00 10/27/17 11:59 09/27/17 18:04 Aspirin (ASA) 81 mg DAILY ORAL 09/23/17 09:00 10/23/17 08:59 09/27/17 09:48 Dextrose (Dextrose 50%) STAT PRN IV Hypoglycemia 09/22/17 23:00 10/22/17 22:59 Digoxin (Lanoxin) 0.125 mg DAILY ORAL 09/27/17 09:00 10/27/17 08:59 09/27/17 09:51 Diltiazem HCl (Cardizem) 90 mg EVERY 8 HOURS ORAL 09/26/17 22:00 10/26/17 21:59 09/27/17 21:51 Doxazosin Mesylate (Cardura) 8 mg DAILY ORAL 09/23/17 09:00 10/23/17 08:59 09/27/17 09:49 Finasteride (Proscar) 5 mg DAILY ORAL 09/23/17 09:00 10/23/17 08:59 09/27/17 09:48 Hydroxyurea (Hydrea) 500 mg DAILY ORAL 09/23/17 09:00 09/28/17 08:59 09/27/17 09:49 Lactulose (Cephulac) 20 gm THREE TIMES A DAY PRN ORAL Constipation 09/26/17 07:15 10/26/17 07:14 09/26/17 09:00 Lidocaine HCl (Xylocaine 1% 30ml) 30 ml ONCE PRN INJ FOR BIOPSY 09/27/17 11:15 09/27/17 23:59 Morphine Sulfate (Morphine Sulfate) 2 mg Q6HR PRN IVP Severe Pain (Pain Scale 7-10) 09/22/17 22:45 09/29/17 22:44 09/23/17 10:57 Pantoprazole (Protonix) 40 mg DAILY ORAL 09/23/17 09:00 10/23/17 08:59 09/27/17 09:51 Zolpidem Tartrate (Ambien) 5 mg HSPRN PRN ORAL Insomnia 09/23/17 20:45 09/30/17 20:44 09/26/17 23:03 Brittany Vigil M.D. Sep 27, 2017 23:10
[2017-09-28 03:26] VITALS: BP 145/80
[2017-09-28] MEDS: dilTIAZem HCl 30mg tab ORAL SCH ×3 (06:21→22:13)
[2017-09-28 08:00] VITALS: BP 140/97
--- NOTE | 2017-09-28 08:14 | Cardiology Progress Note ---
Assessment/Plan Assessment/Plan 1. Atrial fibrillation with CVR, increase start metoprolol 50mg BID, continue cardizem and digoxin. 2. NSVT, magnesium sulfate given, check Mg level at 1600 3. Right lung mass Subjective Subjective A run of NSVT, 21 beats reported. Atrial fibrillation at 90. Objective Last 24 Hour Vital Signs Date Time Temp Pulse Resp B/P (MAP) Pulse Ox O2 Delivery O2 Flow Rate FiO2 09/28/17 06:21 122 160/91 09/28/17 04:00 91 09/28/17 03:26 97.7 121 20 145/80 96 Room Air 09/28/17 00:00 95 09/27/17 23:39 97.3 77 20 148/78 95 Room Air 09/27/17 21:51 80 134/72 09/27/17 20:00 94 09/27/17 19:30 96.8 80 20 134/72 95 Room Air 09/27/17 16:00 97.5 111 18 114/76 96 Room Air 09/27/17 16:00 131 09/27/17 14:55 96 154/89 09/27/17 12:10 96 18 154/89 100 Room Air 09/27/17 12:03 110 18 147/86 99 Room Air 09/27/17 12:00 117 18 146/104 99 Room Air 09/27/17 12:00 96 09/27/17 11:47 115 09/27/17 09:51 94 Intake and Output 09/27/17 09/28/17 19:00 07:00 Intake Total 360 ml Output Total 500 ml Balance 360 ml -500 ml Intake Oral 360 ml Output Urine Total 500 ml # Voids 3 5 2D Echo: LVEF 60%, Mod ANNE MARIE, RVSP 62 mmHg, Mod AR/MR Objective HEENT: normocephalic, atraumatic, PERRL, EOMI, moist mucus membranes Neck: No JVD, no carotid bruit Respiratory: normal inspection, lungs clear Cardiovascular: no edema, no JVD, normal capillary refill, tachycardia, irregularly irregular Gastrointestinal: normal inspection, normal bowel sounds, non tender, soft, no mass, no peritonitis, non-distended, no guarding, no hernia, no pulsatile mass Musculoskeletal: left thigh, focal tenderness to mid thigh, no edema, clubbing or cyanosis, Mild old abrasions to patella. SYEDA GUZMÁN Sep 28, 2017 08:14
[2017-09-28] MEDS: Eliquis 2.5mg tablet ORAL SCH ×2 (08:39→18:29)
[2017-09-28] MEDS: Doxazosin 4mg tab ORAL SCH (08:39)
[2017-09-28] MEDS: Aspirin Baby 81mg ORAL SCH (08:39)
[2017-09-28] MEDS: Digoxin 0.125mg tab ORAL SCH (08:39)
[2017-09-28] MEDS: Metoprolol Tartrate 50mg tab ORAL SCH ×2 (08:40→21:17)
[2017-09-28] MEDS: Allopurinol 100mg Tab ORAL SCH (08:40)
--- NOTE | 2017-09-28 09:00 | General Progress Note ---
Assessment/Plan Status: stable Assessment/Plan 1. Disequilibrium, possibility of brain met, cant be excluded 2. Atrial fibrillation, 3. Acute encephalopathy - possibility of brain met, cant be excluded 4. New Lung CA in RLL 4. Dementia. 5. Hypertension. 6. Benign prostatic hypertrophy. 7. Renal failure, age indeterminate. 8. Gastrointestinal and deep vein thrombosis prophylaxes. plan: Cardiology Neurology Notes reviewed start eliis Hem/onch consult- Diagnosis in progress TREATMENT/STAGING WILL BE DEFERRED TO OUT PATIENT New Lung CA in RLL- based on imaging features, pending culture uneventful IR- CT guided bx Ok to DC to [facility] Subjective ROS Limited/Unobtainable: No Constitutional: Reports: weakness HEENT: Reports: no symptoms Cardiovascular: Reports: no symptoms Respiratory: Reports: no symptoms Allergies: Coded Allergies: ASPIRIN (Verified Allergy, Unknown, 09/22/17) Subjective Left sided pain Objective Last 24 Hour Vital Signs Date Time Temp Pulse Resp B/P (MAP) Pulse Ox O2 Delivery O2 Flow Rate FiO2 09/28/17 08:40 97 149/95 09/28/17 08:39 97 09/28/17 06:21 122 160/91 09/28/17 04:00 91 09/28/17 03:26 97.7 121 20 145/80 96 Room Air 09/28/17 00:00 95 09/27/17 23:39 97.3 77 20 148/78 95 Room Air 09/27/17 21:51 80 134/72 09/27/17 20:00 94 09/27/17 19:30 96.8 80 20 134/72 95 Room Air 09/27/17 16:00 97.5 111 18 114/76 96 Room Air 09/27/17 16:00 131 09/27/17 14:55 96 154/89 09/27/17 12:10 96 18 154/89 100 Room Air 09/27/17 12:03 110 18 147/86 99 Room Air 09/27/17 12:00 117 18 146/104 99 Room Air 09/27/17 12:00 96 09/27/17 11:47 115 09/27/17 09:51 94 Intake and Output 09/27/17 09/28/17 19:00 07:00 Intake Total 360 ml Output Total 500 ml Balance 360 ml -500 ml Intake Oral 360 ml Output Urine Total 500 ml # Voids 3 5 Height (Feet): 5 Height (Inches): 11.00 Weight (Pounds): 188 General Appearance: no apparent distress EENT: PERRL/EOMI Neck: supple Cardiovascular: normal rate Respiratory/Chest: rhonchi - bilaterally Abdomen: soft Extremities: non-tender, other - imbalance, secondary to pain in left LE Neurologic: vamp marker II-XII grossly normal Scotty Sanabria MD Sep 28, 2017 09:00
[2017-09-28 09:32] LABS: BASOPHILS % (AUTO) 1.6 % (0.0-2.0); EOSINOPHILS % (AUTO) 0.9 % (0.0-3.0); LYMPHOCYTES % (AUTO) 8.2 % (20.0-45.0); MEAN CORPUSCULAR HEMOGLOBIN 33.3 PG (27.0-31.0); MEAN CORPUSCULAR HGB CONC 32.3 G/DL (32.0-36.0); MEAN CORPUSCULAR VOLUME 103 FL (80-99); MEAN PLATELET VOLUME 4.7 FL (6.5-10.1); MONOCYTES % (AUTO) 10.7 % (1.0-10.0); NEUTROPHILS % (AUTO) 78.6 % (45.0-75.0); PLATELET COUNT 693 K/UL (150-450); RED BLOOD COUNT 4.24 M/UL (4.70-6.10); RED CELL DISTRIBUTION WIDTH 12.9 % (11.6-14.8)
[2017-09-28 09:39] LABS: ANION GAP 8 mmol/L (5-15); CALCIUM 8.8 MG/DL (8.5-10.1); CARBON DIOXIDE 30 MMOL/L (21-32); CHLORIDE 102 MMOL/L (98-107); CREATININE 1.8 MG/DL (0.55-1.30); POTASSIUM 4.3 MMOL/L (3.5-5.1); SODIUM 139 MMOL/L (136-145)
--- NOTE | 2017-09-28 09:55 | General Progress Note ---
Assessment/Plan Assessment/Plan ASSESSMENT AND RECOMMENDATIONS: 1. 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 --> S/p CT guided biopsy, awaiting final pathology report 2. Thrombocytosis. worsening JAK2 pending 3. Anemia, secondary to chronic disease. Continue to closely monitor. 4. Bony metastasis. Consider Zometa as an outpatient to prevent fractures. 5. Presyncopal episode. No evidence of metastasis to the brain is noted at this time. 6. Progressive dementia over the past several years. Subjective Hematologic/Lymphatic: Reports: anemia Allergies: Coded Allergies: ASPIRIN (Verified Allergy, Unknown, 09/22/17) All Systems: reviewed and negative except above Subjective s/p biopsy, afebrile Objective Last 24 Hour Vital Signs Date Time Temp Pulse Resp B/P (MAP) Pulse Ox O2 Delivery O2 Flow Rate FiO2 09/28/17 08:40 97 149/95 09/28/17 08:39 97 09/28/17 08:00 97.3 87 19 140/97 94 Room Air 09/28/17 06:21 122 160/91 09/28/17 04:00 91 09/28/17 03:26 97.7 121 20 145/80 96 Room Air 09/28/17 00:00 95 09/27/17 23:39 97.3 77 20 148/78 95 Room Air 09/27/17 21:51 80 134/72 09/27/17 20:00 94 09/27/17 19:30 96.8 80 20 134/72 95 Room Air 09/27/17 16:00 97.5 111 18 114/76 96 Room Air 09/27/17 16:00 131 09/27/17 14:55 96 154/89 09/27/17 12:10 96 18 154/89 100 Room Air 09/27/17 12:03 110 18 147/86 99 Room Air 09/27/17 12:00 117 18 146/104 99 Room Air 09/27/17 12:00 96 09/27/17 11:47 115 Intake and Output 09/27/17 09/28/17 19:00 07:00 Intake Total 360 ml Output Total 500 ml Balance 360 ml -500 ml Intake Oral 360 ml Output Urine Total 500 ml # Voids 3 5 Laboratory Tests 09/28/17 09:00: White Blood Count 8.0, Red Blood Count 4.24L, Hemoglobin 14.1L, Hematocrit 43.7 , Mean Corpuscular Volume 103H, Mean Corpuscular Hemoglobin 33.3H, Mean Corpuscular Hemoglobin Concent 32.3, Red Cell Distribution Width 12.9, Platelet Count 693H, Mean Platelet Volume 4.7L, Neutrophils (%) (Auto) 78.6H, Lymphocytes (%) (Auto) 8.2L, Monocytes (%) (Auto) 10.7H, Eosinophils (%) (Auto) 0.9, Basophils (%) (Auto) 1.6, Sodium Level 139, Potassium Level 4.3, Chloride Level 102, Carbon Dioxide Level 30, Anion Gap 8, Blood Urea Nitrogen 23H, Creatinine 1.8H, Estimat Glomerular Filtration Rate , Glucose Level 130H, Calcium Level 8.8 Height (Feet): 5 Height (Inches): 11.00 Weight (Pounds): 188 General Appearance: no apparent distress EENT: normal ENT inspection Neck: non-tender, normal alignment Cardiovascular: normal peripheral pulses Respiratory/Chest: chest wall non-tender 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
[2017-09-28 12:00] VITALS: BP 133/79
[2017-09-28 16:00] VITALS: BP 137/67
--- NOTE | 2017-09-28 17:17 | Progress Note ---
DATE: 09/28/2017 SUBJECTIVE: The patient is calm. Complains of weakness, dysphoria, and decreased energy. MENTAL STATUS EXAMINATION: The patient is alert and oriented times self, place, and situation he is in. Mood is dysphoric. Affect is constricted. Congruent with mood. Thought process is concrete. Thought content, no suicidal or homicidal ideations. ASSESSMENT: Depression and anxiety. PLAN: 1. We will continue current medication. 2. Provide the patient with supportive therapy and reality orientation. Brittany Vigil M.D. DR: SEAN JOB#: [id number] CC:
--- NOTE | 2017-09-28 17:33 | Pulmonology Progress Note ---
Assessment/Plan Problems: (1) Lung cancer metastatic to bone (2) Atrial fibrillation with rapid ventricular response (3) Chest pain (4) CKD (chronic kidney disease) Assessment/Plan ASSESSMENT: -RML 4 cm density with hilar + mediastinal LAD, concerning for a primary lung malignancy S/P CTGBx 09/27/17 -Moderate R sided pleural effusion -Possible T10 lytic lesion -AF, admitted with RVR, now rate controlled and on A/C -Pulmonary HTN (on TTE) -Extensive prior tobacco use -Possible underlying COPD -LE pain and recent immobility -BRAULIO on CKD -BPH PLAN: -F/U CTGbx path and onc recs, should have definitive mediastinal staging even if the lung path is + for CA -PET as outpatient -Will need outpatient PFT's -Optimize pulmonary hygiene/mobilize as tolerated -PRN HHN's -Rate control (dilt) per cards -Repeat TTE in the future once acute issues resolved and if PASP truly elevated can w/u further at that time -F/U neuro recs, consider PT, consider ortho eval -DVT Px: A/C Ziggy Ace MD, [facility] Pulmonary & Critical Care Medicine [address], [address] [place] [address] Subjective Allergies: Coded Allergies: ASPIRIN (Verified Allergy, Unknown, 09/22/17) Subjective AFVSS, rate controlled AF S/P CTGBx --> No PTX No cough, no SOB, no wheezing, no F/C Objective Last 24 Hour Vital Signs Date Time Temp Pulse Resp B/P (MAP) Pulse Ox O2 Delivery O2 Flow Rate FiO2 09/28/17 16:00 96.4 70 20 137/67 98 Room Air 09/28/17 14:38 80 133/79 09/28/17 12:00 80 09/28/17 12:00 97.3 94 19 133/79 95 Room Air 09/28/17 08:40 97 149/95 09/28/17 08:39 97 09/28/17 08:00 97.3 87 19 140/97 94 Room Air 09/28/17 08:00 98 09/28/17 06:21 122 160/91 09/28/17 04:00 91 09/28/17 03:26 97.7 121 20 145/80 96 Room Air 09/28/17 00:00 95 09/27/17 23:39 97.3 77 20 148/78 95 Room Air 09/27/17 21:51 80 134/72 09/27/17 20:00 94 09/27/17 19:30 96.8 80 20 134/72 95 Room Air Intake and Output 09/27/17 09/28/17 19:00 07:00 Intake Total 360 ml Output Total 500 ml Balance 360 ml -500 ml Intake Oral 360 ml Output Urine Total 500 ml # Voids 3 5 General Appearance: WD/WN, no acute distress HEENT: normocephalic, atraumatic, anicteric, mucous membranes moist Respiratory/Chest: chest wall non-tender, lungs clear, normal breath sounds, no respiratory distress Cardiovascular: normal peripheral pulses, normal rate, regular rhythm, regularly irregular Abdomen: normal bowel sounds, soft, non tender, no organomegaly, non distended Extremities: no cyanosis, no clubbing, no edema Laboratory Tests 09/28/17 09:00: White Blood Count 8.0, Red Blood Count 4.24L, Hemoglobin 14.1L, Hematocrit 43.7 , Mean Corpuscular Volume 103H, Mean Corpuscular Hemoglobin 33.3H, Mean Corpuscular Hemoglobin Concent 32.3, Red Cell Distribution Width 12.9, Platelet Count 693H, Mean Platelet Volume 4.7L, Neutrophils (%) (Auto) 78.6H, Lymphocytes (%) (Auto) 8.2L, Monocytes (%) (Auto) 10.7H, Eosinophils (%) (Auto) 0.9, Basophils (%) (Auto) 1.6, Sodium Level 139, Potassium Level 4.3, Chloride Level 102, Carbon Dioxide Level 30, Anion Gap 8, Blood Urea Nitrogen 23H, Creatinine 1.8H, Estimat Glomerular Filtration Rate , Glucose Level 130H, Calcium Level 8.8 09/28/17 15:58: Magnesium Level 2.6H Current Medications Medications (Trade) Dose Ordered Sig/Alfonzo Route PRN Reason Start Time Stop Time Status Last Admin Dose Admin Acetaminophen (Tylenol) 500 mg Q6H PRN ORAL Mild Pain/Temp > 100.5 09/22/17 23:00 10/22/17 22:59 09/26/17 23:06 Allopurinol (Zyloprim) 100 mg DAILY ORAL 12/17/17 09:00 10/23/17 08:59 09/28/17 08:40 Apixaban (Eliquis) 2.5 mg BID ORAL 09/27/17 12:00 10/27/17 11:59 09/28/17 08:39 Aspirin (ASA) 81 mg DAILY ORAL 09/23/17 09:00 10/23/17 08:59 09/28/17 08:39 Dextrose (Dextrose 50%) STAT PRN IV Hypoglycemia 09/22/17 23:00 10/22/17 22:59 Digoxin (Lanoxin) 0.125 mg DAILY ORAL 09/27/17 09:00 10/27/17 08:59 09/28/17 08:39 Diltiazem HCl (Cardizem) 90 mg EVERY 8 HOURS ORAL 09/26/17 22:00 10/26/17 21:59 09/28/17 14:38 Doxazosin Mesylate (Cardura) 8 mg DAILY ORAL 09/23/17 09:00 10/23/17 08:59 09/28/17 08:39 Finasteride (Proscar) 5 mg DAILY ORAL 09/23/17 09:00 10/23/17 08:59 09/28/17 08:40 Lactulose (Cephulac) 20 gm THREE TIMES A DAY PRN ORAL Constipation 09/26/17 07:15 10/26/17 07:14 09/26/17 09:00 Metoprolol Tartrate (Lopressor) 50 mg Q12HR ORAL 09/28/17 09:00 10/28/17 08:59 09/28/17 08:40 Morphine Sulfate (Morphine Sulfate) 2 mg Q6HR PRN IVP Severe Pain (Pain Scale 7-10) 09/22/17 22:45 09/29/17 22:44 09/23/17 10:57 Pantoprazole (Protonix) 40 mg ACBREAKFAST ORAL 09/29/17 06:30 10/23/17 08:59 Zolpidem Tartrate (Ambien) 5 mg HSPRN PRN ORAL Insomnia 09/23/17 20:45 09/30/17 20:44 09/26/17 23:03 ZIGGY ACE M.D. Sep 28, 2017 17:33
--- NOTE | 2017-09-28 17:54 | Diagnostic Imaging Report ---
Indication: Cough. Status post biopsy. Technique: XRAY Chest 1v Comparison: 09/27/2017 Findings: Heart size and mediastinal contours are stable. There is persistent hazy opacification of the right mid and lower lung. There is no definite pneumothorax. Osseous structures are stable. Impression: No definite pneumothorax. Persistent hazy opacification of the right mid/lower lung.
[2017-09-28 20:00] VITALS: BP 150/105
[2017-09-29] VITALS (8 sets, daily range): BP systolic 129–145; BP diastolic 60–93
[2017-09-29] MEDS: dilTIAZem HCl 30mg tab ORAL SCH ×3 (05:09→22:16)
[2017-09-29] MEDS: Allopurinol 100mg Tab ORAL SCH (09:24)
[2017-09-29] MEDS: Doxazosin 4mg tab ORAL SCH (09:25)
[2017-09-29] MEDS: Digoxin 0.125mg tab ORAL SCH (09:26)
[2017-09-29] MEDS: Metoprolol Tartrate 50mg tab ORAL SCH ×2 (09:27→21:45)
[2017-09-29] MEDS: Eliquis 2.5mg tablet ORAL SCH ×2 (09:28→17:50)
[2017-09-29] MEDS: Aspirin Baby 81mg ORAL SCH (09:29)
--- NOTE | 2017-09-29 10:46 | Pulmonology Progress Note ---
Assessment/Plan Problems: (1) Lung cancer metastatic to bone (2) Atrial fibrillation with rapid ventricular response (3) Chest pain (4) CKD (chronic kidney disease) Assessment/Plan ASSESSMENT: -RML 4 cm density with hilar + mediastinal LAD, concerning for a primary lung malignancy S/P CTGBx 09/27/17 -Moderate R sided pleural effusion -Possible T10 lytic lesion -AF, admitted with RVR, now rate controlled and on A/C -Pulmonary HTN (on TTE) -Extensive prior tobacco use -Possible underlying COPD -LE pain and recent immobility -BRAULIO on CKD -BPH PLAN: -PA/LAT CXR -F/U CTGbx path and onc recs, should have definitive mediastinal staging even if the lung path is + for CA -PET as outpatient -Will need outpatient PFT's -Optimize pulmonary hygiene/mobilize as tolerated -PRN HHN's -Rate control (dilt) per cards -Repeat TTE in the future once acute issues resolved and if PASP truly elevated can w/u further at that time -DVT Px: A/C Zigyg Ace MD, [facility] Pulmonary & Critical Care Medicine [address] [place] [address], [address] [place] [address] Subjective Allergies: Coded Allergies: ASPIRIN (Verified Allergy, Unknown, 09/22/17) Subjective AFVSS, rate controlled AF CXR with hazy opacification R HT No cough, no SOB, no wheezing, no F/C Objective Last 24 Hour Vital Signs Date Time Temp Pulse Resp B/P (MAP) Pulse Ox O2 Delivery O2 Flow Rate FiO2 09/29/17 09:27 70 130/60 09/29/17 09:26 70 09/29/17 08:00 97.8 70 20 130/60 94 Room Air 09/29/17 08:00 75 09/29/17 05:09 97 145/93 09/29/17 04:00 97.9 97 20 145/93 96 Room Air 09/29/17 04:00 98 09/29/17 00:00 98.1 64 20 142/76 98 Room Air 09/28/17 23:30 69 09/28/17 22:36 92 09/28/17 22:13 89 155/73 09/28/17 21:17 90 150/105 09/28/17 20:00 98.1 92 23 150/105 97 Room Air 09/28/17 16:00 96.4 70 20 137/67 98 Room Air 09/28/17 16:00 99 09/28/17 14:38 80 133/79 09/28/17 12:00 80 09/28/17 12:00 97.3 94 19 133/79 95 Room Air Intake and Output 09/28/17 09/29/17 19:00 07:00 Intake Total 236 ml Output Total 400 ml Balance 236 ml -400 ml Intake Oral 236 ml Output Urine Total 400 ml General Appearance: WD/WN, no acute distress HEENT: normocephalic, atraumatic, anicteric, mucous membranes moist Respiratory/Chest: chest wall non-tender, lungs clear, normal breath sounds, no respiratory distress, no accessory muscle use Cardiovascular: normal peripheral pulses, normal rate, regular rhythm Abdomen: normal bowel sounds, soft, non tender, no organomegaly, non distended , no mass Extremities: no cyanosis, no clubbing, no edema Laboratory Tests 09/28/17 15:58: Magnesium Level 2.6H Current Medications Medications (Trade) Dose Ordered Sig/Alfonzo Route PRN Reason Start Time Stop Time Status Last Admin Dose Admin Acetaminophen (Tylenol) 500 mg Q6H PRN ORAL Mild Pain/Temp > 100.5 09/22/17 23:00 10/22/17 22:59 09/26/17 23:06 Allopurinol (Zyloprim) 100 mg DAILY ORAL 09/23/17 09:00 10/23/17 08:59 09/29/17 09:24 Apixaban (Eliquis) 2.5 mg BID ORAL 09/27/17 12:00 10/27/17 11:59 09/29/17 09:28 Aspirin (ASA) 81 mg DAILY ORAL 09/23/17 09:00 10/23/17 08:59 09/29/17 09:29 Dextrose (Dextrose 50%) STAT PRN IV Hypoglycemia 09/22/17 23:00 10/22/17 22:59 Digoxin (Lanoxin) 0.125 mg DAILY ORAL 09/27/17 09:00 10/27/17 08:59 09/29/17 09:26 Diltiazem HCl (Cardizem) 90 mg EVERY 8 HOURS ORAL 09/26/17 22:00 10/26/17 21:59 09/29/17 05:09 Doxazosin Mesylate (Cardura) 8 mg DAILY ORAL 09/23/17 09:00 10/23/17 08:59 09/29/17 09:25 Finasteride (Proscar) 5 mg DAILY ORAL 09/23/17 09:00 10/23/17 08:59 09/29/17 09:23 Lactulose (Cephulac) 20 gm THREE TIMES A DAY PRN ORAL Constipation 09/26/17 07:15 10/26/17 07:14 09/26/17 09:00 Metoprolol Tartrate (Lopressor) 50 mg Q12HR ORAL 09/28/17 09:00 10/28/17 08:59 09/29/17 09:27 Morphine Sulfate (Morphine Sulfate) 2 mg Q6HR PRN IVP Severe Pain (Pain Scale 7-10) 09/22/17 22:45 09/29/17 22:44 09/23/17 10:57 Pantoprazole (Protonix) 40 mg ACBREAKFAST ORAL 09/29/17 06:30 10/23/17 08:59 09/29/17 05:08 Zolpidem Tartrate (Ambien) 5 mg HSPRN PRN ORAL Insomnia 09/23/17 20:45 09/30/17 20:44 09/26/17 23:03 ZIGGY ACE M.D. Sep 29, 2017 10:46
--- NOTE | 2017-09-29 21:01 | General Progress Note ---
Assessment/Plan Assessment/Plan ASSESSMENT AND RECOMMENDATIONS: 1. 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 --> S/p CT guided biopsy, awaiting final pathology report 2. Thrombocytosis, reactive process from cancer. JAK2 pending 3. Anemia, secondary to chronic disease. Continue to closely monitor. 4. Bony metastasis. Consider Zometa as an outpatient to prevent fractures. 5. Presyncopal episode. No evidence of metastasis to the brain is noted at this time. 6. Progressive dementia over the past several years. Subjective Allergies: Coded Allergies: ASPIRIN (Verified Allergy, Unknown, 09/22/17) All Systems: reviewed and negative except above Subjective NAD,s/p biopsy, afebrile Objective Last 24 Hour Vital Signs Date Time Temp Pulse Resp B/P (MAP) Pulse Ox O2 Delivery O2 Flow Rate FiO2 09/29/17 16:00 79 09/29/17 16:00 96.9 81 18 129/70 Room Air 09/29/17 15:22 83 131/70 09/29/17 14:52 97.9 83 18 131/70 Room Air 09/29/17 12:00 97.9 83 19 131/70 Room Air 09/29/17 12:00 97.9 83 19 131/70 Room Air 09/29/17 12:00 77 09/29/17 09:27 70 130/60 09/29/17 09:26 70 09/29/17 08:00 97.8 70 20 130/60 94 Room Air 09/29/17 08:00 75 09/29/17 05:09 97 145/93 09/29/17 04:00 97.9 97 20 145/93 96 Room Air 09/29/17 04:00 98 09/29/17 00:00 98.1 64 20 142/76 98 Room Air 09/28/17 23:30 69 09/28/17 22:36 92 09/28/17 22:13 89 155/73 09/28/17 21:17 90 150/105 Intake and Output 09/28/17 09/29/17 19:00 07:00 Intake Total 236 ml Output Total 400 ml Balance 236 ml -400 ml Intake Oral 236 ml Output Urine Total 400 ml Height (Feet): 5 Height (Inches): 11.00 Weight (Pounds): 188 General Appearance: no apparent distress EENT: normal ENT inspection Neck: normal alignment Cardiovascular: normal peripheral pulses Respiratory/Chest: chest wall non-tender Extremities: normal range of motion Edema: trace edema Duc Mills Sep 29, 2017 21:01
[2017-09-30] VITALS: BP 133/78
[2017-09-30 04:00] VITALS: BP 152/83
--- NOTE | 2017-09-30 04:00 | Progress Note ---
DATE: 09/29/2017 SUBJECTIVE: The patient is calm. His mental condition is unchanged . No anxiety or agitation. He has mild depressed mood. MENTAL STATUS EXAMINATION: The patient is alert and oriented x3. Mood is dysphoric. Affect is blunted, congruent with mood. Thought content, no suicidal or homicidal ideations. ASSESSMENT: Stable. PLAN: 1. We will continue current medication. 2. We will continue to follow and readjust the medications. Brittany Vigil M.D. DR: OUMAR JOB#: [id number] CC:
[2017-09-30] MEDS: dilTIAZem HCl 30mg tab ORAL SCH ×3 (05:05→20:36)
[2017-09-30 08:00] VITALS: BP 142/85
[2017-09-30 08:24] LABS: ANION GAP 9 mmol/L (5-15); CALCIUM 8.9 MG/DL (8.5-10.1); CARBON DIOXIDE 26 MMOL/L (21-32); CHLORIDE 102 MMOL/L (98-107); CREATININE 1.8 MG/DL (0.55-1.30); POTASSIUM 4.6 MMOL/L (3.5-5.1); SODIUM 137 MMOL/L (136-145)
[2017-09-30] MEDS: Lactulose 20gm/30ml UDC ORAL PRN (08:31)
[2017-09-30] MEDS: Doxazosin 4mg tab ORAL SCH (08:32)
[2017-09-30] MEDS: Metoprolol Tartrate 50mg tab ORAL SCH ×2 (08:32→20:35)
[2017-09-30] MEDS: Digoxin 0.125mg tab ORAL SCH (08:33)
[2017-09-30] MEDS: Eliquis 2.5mg tablet ORAL SCH ×2 (08:33→17:04)
[2017-09-30] MEDS: Allopurinol 100mg Tab ORAL SCH (08:33)
[2017-09-30] MEDS: Aspirin Baby 81mg ORAL SCH (08:34)
--- NOTE | 2017-09-30 09:56 | Diagnostic Imaging Report ---
Indication: Cough Technique: XRAY Chest 1v Comparison: 09/28/2017 Findings: Heart size and mediastinal contours are stable. There is persistent hazy opacification of the right mid and lower lungs with dense consolidation in the region of the known consolidation in the right middle lobe seen on prior CT. Slight improved aeration of these areas compared to the prior exam may be related to decreased layering pleural fluid. There is no pneumothorax. Osseous structures are stable. Impression: Unchanged mass in the right midlung consistent with the right lower lobe mass seen on prior CT. Interval decreased hazy opacification may be related to decreased layering pleural fluid. No definite pneumothorax.
[2017-09-30] MEDS: Guaifenesin/DM 10ml syrup ORAL PRN ×2 (11:55→17:04)
[2017-09-30 12:00] VITALS: BP 157/92
--- NOTE | 2017-09-30 15:30 | Pulmonology Progress Note ---
Assessment/Plan Problems: (1) Lung cancer metastatic to bone (2) Atrial fibrillation with rapid ventricular response (3) Chest pain (4) CKD (chronic kidney disease) Assessment/Plan ASSESSMENT: -RML 4 cm density with hilar + mediastinal LAD, concerning for a primary lung malignancy S/P CTGBx 09/27/17 -Moderate R sided pleural effusion -Possible T10 lytic lesion -AF, admitted with RVR, now rate controlled and on A/C -Pulmonary HTN (on TTE) -Extensive prior tobacco use -Possible underlying COPD -LE pain and recent immobility -BRAULIO on CKD -BPH PLAN: -F/U CTGbx path and onc recs, should have definitive mediastinal staging even if the lung path is + for CA -PET as outpatient -Will need outpatient PFT's -Optimize pulmonary hygiene/mobilize as tolerated -PRN HHN's -Rate control (dilt) per cards -Repeat TTE in the future once acute issues resolved and if PASP truly elevated can w/u further at that time -DVT Px: A/C Jessy Ace MD, [facility] [address] [place] [address], [address] [place] [address] Subjective Allergies: Coded Allergies: ASPIRIN (Verified Allergy, Unknown, 09/22/17) Subjective CONSTANTIN No cough, no SOB, no wheezing, no F/C Objective Last 24 Hour Vital Signs Date Time Temp Pulse Resp B/P (MAP) Pulse Ox O2 Delivery O2 Flow Rate FiO2 09/30/17 13:30 100 157/92 09/30/17 12:00 97.9 100 19 157/92 96 09/30/17 12:00 87 09/30/17 08:33 71 09/30/17 08:32 71 142/85 09/30/17 08:00 97.8 71 19 142/85 97 09/30/17 08:00 86 09/30/17 05:05 82 152/83 09/30/17 04:00 98.2 82 21 152/83 96 09/30/17 04:00 78 09/30/17 00:00 97.7 80 21 133/78 95 09/30/17 00:00 77 09/29/17 22:16 98 145/92 09/29/17 21:45 98 142/95 09/29/17 21:41 96.9 81 18 129/70 94 Room Air 98 09/29/17 20:00 77 09/29/17 20:00 98.2 83 21 138/68 95 09/29/17 16:00 79 09/29/17 16:00 96.9 81 18 129/70 Room Air Intake and Output 09/29/17 09/30/17 19:00 07:00 Intake Total 472 ml Output Total 200 ml 600 ml Balance 272 ml -600 ml Intake Oral 472 ml Output Urine Total 200 ml 600 ml # Voids 3 # Bowel Movements 1 General Appearance: WD/WN, no acute distress HEENT: normocephalic, atraumatic, mucous membranes moist Respiratory/Chest: chest wall non-tender, lungs clear, normal breath sounds Cardiovascular: normal peripheral pulses, normal rate, regular rhythm Abdomen: normal bowel sounds, soft, non tender, no organomegaly, non distended Extremities: no cyanosis, no clubbing, no edema Laboratory Tests 09/30/17 06:35: Sodium Level 137, Potassium Level 4.6, Chloride Level 102, Carbon Dioxide Level 26, Anion Gap 9, Blood Urea Nitrogen 26H, Creatinine 1.8H, Estimat Glomerular Filtration Rate , Glucose Level 117H, Calcium Level 8.9 Current Medications Medications (Trade) Dose Ordered Sig/Alfonzo Route PRN Reason Start Time Stop Time Status Last Admin Dose Admin Acetaminophen (Tylenol) 500 mg Q6H PRN ORAL Mild Pain/Temp > 100.5 09/22/17 23:00 10/22/17 22:59 09/26/17 23:06 Allopurinol (Zyloprim) 100 mg DAILY ORAL 09/23/17 09:00 10/23/17 08:59 09/30/17 08:33 Apixaban (Eliquis) 2.5 mg BID ORAL 09/27/17 12:00 10/27/17 11:59 09/30/17 08:33 Aspirin (ASA) 81 mg DAILY ORAL 09/23/17 09:00 10/23/17 08:59 09/30/17 08:34 Dextrose (Dextrose 50%) STAT PRN IV Hypoglycemia 09/22/17 23:00 10/22/17 22:59 Digoxin (Lanoxin) 0.125 mg DAILY ORAL 09/27/17 09:00 10/27/17 08:59 09/30/17 08:33 Diltiazem HCl (Cardizem) 90 mg EVERY 8 HOURS ORAL 09/26/17 22:00 10/26/17 21:59 09/30/17 13:30 Doxazosin Mesylate (Cardura) 8 mg DAILY ORAL 09/23/17 09:00 10/23/17 08:59 09/30/17 08:32 Finasteride (Proscar) 5 mg DAILY ORAL 09/23/17 09:00 10/23/17 08:59 09/30/17 08:32 Guaifenesin/ Dextromethorphan (Robitussin DM Syrup) 10 ml Q4H PRN ORAL For Cough 09/30/17 11:15 10/30/17 11:14 09/30/17 11:55 Lactulose (Cephulac) 20 gm THREE TIMES A DAY PRN ORAL Constipation 09/26/17 07:15 10/26/17 07:14 09/30/17 08:31 Metoprolol Tartrate (Lopressor) 50 mg Q12HR ORAL 09/28/17 09:00 10/28/17 08:59 09/30/17 08:32 Pantoprazole (Protonix) 40 mg ACBREAKFAST ORAL 09/29/17 06:30 10/23/17 08:59 09/30/17 05:04 Zolpidem Tartrate (Ambien) 5 mg HSPRN PRN ORAL Insomnia 09/23/17 20:45 09/30/17 20:44 09/26/17 23:03 JESSY ACE M.D. Sep 30, 2017 15:29
[2017-09-30 16:00] VITALS: BP 154/70
[2017-09-30 20:40] VITALS: BP 136/76
--- NOTE | 2017-09-30 20:58 | General Progress Note ---
Assessment/Plan Assessment/Plan ASSESSMENT AND RECOMMENDATIONS: 1. 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 --> S/p CT guided biopsy, awaiting final pathology report 2. Thrombocytosis, reactive process from cancer. JAK2 pending 3. Anemia, secondary to chronic disease. Continue to closely monitor. 4. Bony metastasis. Consider Zometa as an outpatient to prevent fractures. 5. Presyncopal episode. No evidence of metastasis to the brain is noted at this time. 6. Progressive dementia over the past several years. Subjective Allergies: Coded Allergies: ASPIRIN (Verified Allergy, Unknown, 09/22/17) All Systems: reviewed and negative except above Subjective NAD Objective Last 24 Hour Vital Signs Date Time Temp Pulse Resp B/P (MAP) Pulse Ox O2 Delivery O2 Flow Rate FiO2 09/30/17 20:40 97.7 98 19 136/76 96 Room Air 09/30/17 20:36 98 136/79 09/30/17 20:35 98 136/79 09/30/17 16:00 82 09/30/17 16:00 97.8 81 19 154/70 94 09/30/17 13:30 100 157/92 09/30/17 12:00 97.9 100 19 157/92 96 09/30/17 12:00 87 09/30/17 08:33 71 09/30/17 08:32 71 142/85 09/30/17 08:00 97.8 71 19 142/85 97 09/30/17 08:00 86 09/30/17 05:05 82 152/83 09/30/17 04:00 98.2 82 21 152/83 96 09/30/17 04:00 78 09/30/17 00:00 97.7 80 21 133/78 95 09/30/17 00:00 77 09/29/17 22:16 98 145/92 09/29/17 21:45 98 142/95 09/29/17 21:41 96.9 81 18 129/70 94 Room Air 98 Intake and Output 09/29/17 09/30/17 19:00 07:00 Intake Total 472 ml Output Total 200 ml 600 ml Balance 272 ml -600 ml Intake Oral 472 ml Output Urine Total 200 ml 600 ml # Voids 3 # Bowel Movements 1 Laboratory Tests 09/30/17 06:35: Sodium Level 137, Potassium Level 4.6, Chloride Level 102, Carbon Dioxide Level 26, Anion Gap 9, Blood Urea Nitrogen 26H, Creatinine 1.8H, Estimat Glomerular Filtration Rate , Glucose Level 117H, Calcium Level 8.9 Height (Feet): 5 Height (Inches): 11.00 Weight (Pounds): 188 General Appearance: no apparent distress EENT: normal ENT inspection Neck: normal alignment Edema: trace edema 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
[2017-10-01] VITALS: BP 125/69
[2017-10-01 04:47] VITALS: BP 126/65
[2017-10-01] MEDS: dilTIAZem HCl 30mg tab ORAL SCH (06:35)
[2017-10-01 08:00] VITALS: BP 151/76
[2017-10-01] MEDS: Aspirin Baby 81mg ORAL SCH (08:46)
[2017-10-01] MEDS: Metoprolol Tartrate 50mg tab ORAL SCH ×2 (08:46→21:13)
[2017-10-01] MEDS: Allopurinol 100mg Tab ORAL SCH (08:46)
[2017-10-01] MEDS: Doxazosin 4mg tab ORAL SCH (08:47)
[2017-10-01] MEDS: Digoxin 0.125mg tab ORAL SCH (08:47)
[2017-10-01] MEDS: Eliquis 2.5mg tablet ORAL SCH ×2 (08:47→17:50)
[2017-10-01] MEDS: Guaifenesin/DM 10ml syrup ORAL PRN ×3 (08:58→18:55)
[2017-10-01 12:00] VITALS: BP 139/69
[2017-10-01] MEDS ORDERED: Acetaminophen 500mg (ES) tab ORAL PRN (13:00)
[2017-10-01] MEDS ORDERED: Lactulose 20gm/30ml UDC ORAL PRN (13:00)
[2017-10-01] MEDS ORDERED: dilTIAZem HCl 30mg tab ONE (14:38)
[2017-10-01] MEDS: dilTIAZem HCl 90mg tab ORAL SCH ×2 (14:57→21:13)
[2017-10-01 15:35] LABS: ANION GAP 8 mmol/L (5-15); CALCIUM 8.6 MG/DL (8.5-10.1); CARBON DIOXIDE 30 MMOL/L (21-32); CHLORIDE 104 MMOL/L (98-107); DIGOXIN 1.1 NG/ML (0.5-2.0); POTASSIUM 4.8 MMOL/L (3.5-5.1); SODIUM 142 MMOL/L (136-145)
[2017-10-01 16:00] VITALS: BP 153/89
--- NOTE | 2017-10-01 18:53 | General Progress Note ---
Assessment/Plan Assessment/Plan ASSESSMENT AND RECOMMENDATIONS: 1. 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 --> S/p CT guided biopsy, awaiting final pathology report --> consider hospice given age and fact that needs SNF placement 2. Thrombocytosis, reactive process from cancer. JAK2 pending 3. Anemia, secondary to chronic disease. Continue to closely monitor. 4. Bony metastasis. Consider Zometa as an outpatient to prevent fractures. 5. Presyncopal episode. No evidence of metastasis to the brain is noted at this time. 6. Progressive dementia over the past several years. Subjective Hematologic/Lymphatic: Reports: anemia Allergies: Coded Allergies: ASPIRIN (Verified Allergy, Unknown, 09/22/17) All Systems: reviewed and negative except above Subjective NAD Objective Last 24 Hour Vital Signs Date Time Temp Pulse Resp B/P (MAP) Pulse Ox O2 Delivery O2 Flow Rate FiO2 10/01/17 16:00 97.9 86 19 153/89 97 Room Air 10/01/17 14:57 80 139/69 10/01/17 12:00 97.7 80 20 139/69 97 10/01/17 08:47 91 10/01/17 08:46 91 151/76 10/01/17 08:00 97.7 91 19 151/76 97 Room Air 10/01/17 08:00 82 10/01/17 06:35 98 142/70 10/01/17 04:47 97.6 86 19 126/65 96 Room Air 10/01/17 04:00 94 10/01/17 00:00 78 10/01/17 00:00 97.7 88 19 125/69 96 Room Air 09/30/17 20:40 97.7 98 19 136/76 96 Room Air 09/30/17 20:36 98 136/79 09/30/17 20:35 98 136/79 09/30/17 20:00 89 Intake and Output 09/30/17 10/01/17 19:00 07:00 Intake Total 472 ml Output Total 100 ml 350 ml Balance 372 ml -350 ml Intake Oral 472 ml Output Urine Total 100 ml 350 ml # Voids 2 1 # Bowel Movements 1 1 Laboratory Tests 10/01/17 14:45: Sodium Level 142, Potassium Level 4.8, Chloride Level 104, Carbon Dioxide Level 30, Anion Gap 8, Blood Urea Nitrogen 29H, Creatinine 2.0H, Estimat Glomerular Filtration Rate , Glucose Level 111H, Calcium Level 8.6, Digoxin Level 1.1 Height (Feet): 5 Height (Inches): 11.00 Weight (Pounds): 188 General Appearance: no apparent distress EENT: normal ENT inspection Neck: normal alignment Neurologic: cigar bander II-XII grossly normal Skin: normal pigmentation Duc Mills Oct 01, 2017 18:53
[2017-10-01 20:00] VITALS: BP 135/62
[2017-10-02] VITALS: BP 141/70
[2017-10-02 04:00] VITALS: BP 140/84
[2017-10-02] MEDS: dilTIAZem HCl 90mg tab ORAL SCH ×2 (05:42→14:26)
[2017-10-02 08:00] VITALS: BP 153/70
[2017-10-02] MEDS: Metoprolol Tartrate 50mg tab ORAL SCH (08:35)
[2017-10-02] MEDS: Eliquis 2.5mg tablet ORAL SCH (08:36)
[2017-10-02] MEDS ORDERED: Digoxin 0.125mg tab ORAL SCH (09:00)
[2017-10-02] MEDS ORDERED: Allopurinol 100mg Tab ORAL SCH (09:00)
[2017-10-02] MEDS ORDERED: Doxazosin 4mg tab ORAL SCH (09:00)
[2017-10-02] MEDS ORDERED: Aspirin Baby 81mg ORAL SCH (09:00)
[2017-10-02 12:00] VITALS: BP 159/73
--- NOTE | 2017-10-02 13:56 | Pulmonology Progress Note ---
Assessment/Plan Assessment/Plan ASSESSMENT Stage IV lung cancerc/w bronchogenic carcinoma Metastatic disease to the bones s/p CT guided lung mass biopsy Atrial fibrillation with rapid ventricular response-controlled now Chest pain CKD severe pulmonary HT moderate MR and AR dementia PLAN OF CARE MS floor rate control with BB CCB and Digoxin- currently controlled on Eliquis cardio follwos imaging done due to bone pain X ray L knee, soduelr, hip and pelvis cj vidcen of acute bony trauma CXR with evidence of ovoid density in the right midlung measuring up to 3.[address] chest revealed 4 cm mass in the right middle lobe consistent with bronchogenic carcinoma. Hilar and mediastinal adenopathy. Lytic metastatic focus noted involving the left T10 vertebra. s/p CT guided biopsy of R lung mass. biopsy results pending ECHO with pEF 60% and RVSP of 62 c/w severe pulmonary HTN as well as evidence of moderate AR, and MR check Venous Duplex on Eliquis GI prophylaxis pain management Bowel regimen PT/OT heme/onco follows elevated CA 1503 -59.7 with normal AFP and PSA recommend palliative care/hospice eval case discussed and evaluated by supervising physician Subjective Allergies: Coded Allergies: ASPIRIN (Verified Allergy, Unknown, 09/22/17) Subjective reports pain in bones, difficult to walk denies CP, SOB., palpitations HR now controlled Objective Last 24 Hour Vital Signs Date Time Temp Pulse Resp B/P (MAP) Pulse Ox O2 Delivery O2 Flow Rate FiO2 10/02/17 12:00 97.0 71 20 159/73 97 10/02/17 08:35 83 153/70 10/02/17 08:34 83 10/02/17 08:00 98.0 83 20 153/70 98 10/02/17 05:42 88 140/84 10/02/17 04:00 99 Room Air 10/02/17 04:00 97.7 88 20 140/84 99 Room Air 10/02/17 00:00 97.7 81 20 141/70 96 Room Air 10/02/17 00:00 96 Room Air 10/01/17 21:13 90 135/62 10/01/17 21:13 90 135/62 10/01/17 20:00 97 Room Air 10/01/17 20:00 97.0 90 20 135/62 97 Room Air 10/01/17 16:00 97.9 86 19 153/89 97 Room Air 10/01/17 14:57 80 139/69 Intake and Output 10/01/17 10/02/17 19:00 07:00 Intake Total 200 ml Output Total 120 ml 200 ml Balance -120 ml 0 ml Intake Oral 200 ml Output Urine Total 120 ml 200 ml General Appearance: no acute distress HEENT: normocephalic, atraumatic, anicteric, mucous membranes moist Respiratory/Chest: lungs clear - with mdoerate air intake, no respiratory distress, no accessory muscle use Cardiovascular: normal rate, irregularly irregular Abdomen: normal bowel sounds, soft, non tender, non distended Extremities: no edema Neurologic/Psychiatric: abnormal gait, alert, responsive Musculoskeletal: atrophy - BLE Laboratory Tests 10/01/17 14:45: Sodium Level 142, Potassium Level 4.8, Chloride Level 104, Carbon Dioxide Level 30, Anion Gap 8, Blood Urea Nitrogen 29H, Creatinine 2.0H, Estimat Glomerular Filtration Rate , Glucose Level 111H, Calcium Level 8.6, Digoxin Level 1.1 Current Medications Medications (Trade) Dose Ordered Sig/Alfonzo Route PRN Reason Start Time Stop Time Status Last Admin Dose Admin Acetaminophen (Tylenol) 500 mg Q6H PRN ORAL Mild Pain/Temp > 100.5 10/01/17 13:00 10/22/17 12:59 Allopurinol (Zyloprim) 100 mg DAILY ORAL 10/02/17 09:00 10/23/17 08:59 10/02/17 08:34 Apixaban (Eliquis) 2.5 mg BID ORAL 10/01/17 18:00 10/27/17 11:59 10/02/17 08:36 Aspirin (ASA) 81 mg DAILY ORAL 10/02/17 09:00 10/23/17 08:59 10/02/17 08:34 Dextrose (Dextrose 50%) STAT PRN IV Hypoglycemia 10/01/17 13:00 10/22/17 12:59 Digoxin (Lanoxin) 0.125 mg DAILY ORAL 10/02/17 09:00 10/27/17 08:59 10/02/17 08:34 Diltiazem HCl (Cardizem) 90 mg EVERY 8 HOURS ORAL 10/01/17 14:00 10/26/17 21:59 10/02/17 05:42 Doxazosin Mesylate (Cardura) 8 mg DAILY ORAL 10/02/17 09:00 10/23/17 08:59 10/02/17 08:35 Finasteride (Proscar) 5 mg DAILY ORAL 10/02/17 09:00 10/23/17 08:59 10/02/17 08:36 Guaifenesin/ Dextromethorphan (Robitussin DM Syrup) 10 ml Q4H PRN ORAL For Cough 10/01/17 11:15 10/30/17 11:14 10/01/17 18:55 Lactulose (Cephulac) 20 gm TIDPRN PRN ORAL Constipation 10/01/17 13:00 10/31/17 12:59 Metoprolol Tartrate (Lopressor) 50 mg Q12HR ORAL 10/01/17 21:00 10/28/17 08:59 10/02/17 08:35 Pantoprazole (Protonix) 40 mg ACBREAKFAST ORAL 10/02/17 06:30 10/23/17 08:59 10/02/17 05:42 Jesus ([facility])Rosangela NP Oct 02, 2017 13:56
[2017-10-02 14:26] VITALS: BP 127/71
[2017-10-02] MEDS ORDERED: ELIQUIS2.5 MG PO (16:40)
[2017-10-02] MEDS ORDERED: DIGOXIN125 MCG ORAL (16:41)
[2017-10-02] MEDS ORDERED: METOPROLOL TART50 M1 ORAL (16:42)
[2017-10-02] MEDS ORDERED: CARDIZEM60 MG ORAL (16:42)
[2017-10-02] MEDS ORDERED: PROTONIX40 MG ORAL (16:43)
[2017-10-02] MEDS ORDERED: DOXAZOSIN MESYLA4 MG ORAL (16:47)
--- NOTE | 2017-10-02 21:41 | General Progress Note ---
Assessment/Plan Assessment/Plan ASSESSMENT AND RECOMMENDATIONS: 1. 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 --> S/p CT guided biopsy, awaiting final pathology report --> consider hospice given age and poor performance status 2. Thrombocytosis, likely reactive process from cancer. JAK2 pending 3. Anemia, secondary to chronic disease. Continue to closely monitor. 4. Bony metastasis. Consider Zometa as an outpatient to prevent fractures. 5. Presyncopal episode. No evidence of metastasis to the brain is noted at this time. 6. Progressive dementia over the past several years. Subjective Hematologic/Lymphatic: Reports: anemia Allergies: Coded Allergies: ASPIRIN (Verified Allergy, Unknown, 09/22/17) All Systems: reviewed and negative except above Subjective c/o pain in legs Objective Last 24 Hour Vital Signs Date Time Temp Pulse Resp B/P (MAP) Pulse Ox O2 Delivery O2 Flow Rate FiO2 10/02/17 16:00 97.2 74 20 97 10/02/17 14:26 91 127/71 10/02/17 12:00 97.0 71 20 159/73 97 10/02/17 08:35 83 153/70 10/02/17 08:34 83 10/02/17 08:00 98.0 83 20 153/70 98 10/02/17 05:42 88 140/84 10/02/17 04:00 99 Room Air 10/02/17 04:00 97.7 88 20 140/84 99 Room Air 10/02/17 00:00 97.7 81 20 141/70 96 Room Air 10/02/17 00:00 96 Room Air Intake and Output 10/01/17 10/02/17 19:00 07:00 Intake Total 200 ml Output Total 120 ml 200 ml Balance -120 ml 0 ml Intake Oral 200 ml Output Urine Total 120 ml 200 ml Height (Feet): 5 Height (Inches): 11.00 Weight (Pounds): 188 General Appearance: no apparent distress EENT: normal ENT inspection Neck: non-tender Cardiovascular: normal peripheral pulses Respiratory/Chest: chest wall non-tender Neurologic: collection specialist II-XII grossly normal Skin: normal pigmentation Duc Mills Oct 02, 2017 21:41
--- NOTE | 2017-10-02 23:25 | General Progress Note ---
Assessment/Plan Status: stable, progressing Subjective Date patient seen: Oct 02, 2017 Neurologic/Psychiatric: Reports: anxiety, depressed, emotional problems Allergies: Coded Allergies: ASPIRIN (Verified Allergy, Unknown, 09/22/17) Objective Last 24 Hour Vital Signs Date Time Temp Pulse Resp B/P (MAP) Pulse Ox O2 Delivery O2 Flow Rate FiO2 10/02/17 16:00 97.2 74 20 97 10/02/17 14:26 91 127/71 10/02/17 12:00 97.0 71 20 159/73 97 10/02/17 08:35 83 153/70 10/02/17 08:34 83 10/02/17 08:00 98.0 83 20 153/70 98 10/02/17 05:42 88 140/84 10/02/17 04:00 99 Room Air 10/02/17 04:00 97.7 88 20 140/84 99 Room Air 10/02/17 00:00 97.7 81 20 141/70 96 Room Air 10/02/17 00:00 96 Room Air Intake and Output 10/01/17 10/02/17 19:00 07:00 Intake Total 200 ml Output Total 120 ml 200 ml Balance -120 ml 0 ml Intake Oral 200 ml Output Urine Total 120 ml 200 ml Height (Feet): 5 Height (Inches): 11.00 Weight (Pounds): 188 General Appearance: no apparent distress, alert Neurologic: alert, oriented x 3, responsive Brittany Vigil M.D. Oct 02, 2017 23:25
--- NOTE | 2017-10-04 10:10 | General Progress Note ---
Assessment/Plan Status: stable, progressing Subjective Date patient seen: Oct 01, 2017 Neurologic/Psychiatric: Reports: anxiety, depressed, emotional problems Allergies: Coded Allergies: ASPIRIN (Verified Allergy, Unknown, 09/22/17) Objective Height (Feet): 5 Height (Inches): 11.00 Weight (Pounds): 188 General Appearance: no apparent distress, alert Neurologic: alert, oriented x 3, depressed affect Brittany Vigil M.D. Oct 04, 2017 10:10
--- NOTE | 2017-10-05 10:09 | Discharge Summary ---
Discharge Summary Hospital Course Date of Admission Sep 22, 2017 at 20:21 Date of Discharge Oct 02, 2017 at 17:20 Admitting Diagnosis Afib RVR HPI Sushil Garrison is a 87 year old male who was admitted on Sep 22, 2017 at 20:21 for Atrial Fibrillation Hospital Course [id number] Discharge Discharge Disposition Patient was discharged to SNF/Subacute Facility(03) Discharge Diagnoses: Dania Prescott NP Oct 05, 2017 10:09
--- NOTE | 2017-10-06 | Discharge Summary 2 SIG ---
DATE OF ADMISSION: 09/22/2017 DATE OF DISCHARGE: 10/02/2017 ATTENDING PHYSICIAN: Scotty Sanabria M.D. CONSULTANTS: 1. Duc Mills M.D. 2. Brittany Vigil M.D. 3. Allison Menendez M.D. 4. Terrance Vogt M.D. 5. Bi Marti M.D. BRIEF HOSPITAL COURSE: The patient is an 87-year-old male with history of chronic kidney disease and atrial fibrillation, presented to ED for unsteady gait and ataxia. The patient fell and had left side of the body pain that has gotten gradually worse. On evaluation at ED, he was in uncontrolled atrial fibrillation. X-rays of the femur and hip were negative for acute fracture or dislocation. He was admitted for atrial fibrillation and disequilibrium. The patient had atrial fibrillation and was continued on diltiazem and Xarelto. He had an echocardiogram done that showed ejection fraction of 60%, PASP of 62 with moderate aortic regurgitation. Neurological evaluation was done. The patient had an abnormal gait due to pain in the lower extremities. Head CT was negative for acute intracranial bleed, mass effect, or edema with moderate atrophy of the brain. Knee and shoulder x-ray was negative for acute injury. He had a chest x-ray that showed right mid lung density. Chest CT demonstrated a 4 cm spiculated right middle lobe mass with hilar and mediastinal lymphadenopathy and moderate right-sided effusion and possible T10 lytic lesion. He had extensive history of tobacco use and underwent CT-guided needle biopsy of the right lung mass. Biopsy result still pending. He would need definitive mediastinal staging even if lung pathology is positive for carcinoma and will need outpatient PFT and PET scan. Given the patient's age and comorbidities, consideration for hospice was discussed. The patient was eventually discharged to [facility]. FINAL DIAGNOSES: 1. 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 2. Thrombocytosis likely reactive process from cancer. 3. Anemia secondary to chronic disease. 4. Bony metastasis. 5. Presyncopal episodes. 6. Progressive dementia. 7. Chronic kidney disease. 8. Moderate mitral regurgitation and tricuspid regurgitation. 9. Severe pulmonary hypertension. 10. Status post CT-guided lung mass biopsy. DISPOSITION: The patient was discharged to SNF. DISCHARGE MEDICATIONS: Refer to medication list. DISCHARGE INSTRUCTIONS: Needs to follow up with oncologist and paper products supervisor for an outpatient PFT and PET scan. Follow up results of biopsy. Duc Mills M.D. I have been assigned to dictate discharge summary on this account and I was not involved in the patient's management. Dania Prescott N.P. DR: MICHELLE JOB#: [id number] CC: CARLI
== END 2017-10-02 17:20 | DRG 308 ==
LOC: EDBD 17:01 → EMR 17:29 → EDBEDREQ 19:59 → ENRESERV 20:00 → 2E 20:21 → 4E 10-01 11:09
PROC: 0BBK3ZX Excision of Right Lung, Percutaneous Approach, Diagnostic (ICD-10-PCS; principal; 2017-09-22)
DX: I48.91 Unspecified atrial fibrillation (principal); G93.40 Encephalopathy, unspecified; N17.9 Acute kidney failure, unspecified; C79.51 Secondary malignant neoplasm of bone; F03.90 Unspecified dementia, unspecified severity, without behavioral disturbance, psychotic disturbance, mood disturbance, and anxiety; C34.31 Malignant neoplasm of lower lobe, right bronchus or lung; D47.3 Essential (hemorrhagic) thrombocythemia; I27.20 Pulmonary hypertension, unspecified; I12.9 Hypertensive chronic kidney disease with stage 1 through stage 4 chronic kidney disease, or unspecified chronic kidney disease; N18.9 Chronic kidney disease, unspecified; N40.0 Benign prostatic hyperplasia without lower urinary tract symptoms; R26.9 Unspecified abnormalities of gait and mobility; R42 Dizziness and giddiness; R53.1 Weakness; D63.1 Anemia in chronic kidney disease; M79.605 Pain in left leg; M25.562 Pain in left knee; I35.1 Nonrheumatic aortic (valve) insufficiency; I34.0 Nonrheumatic mitral (valve) insufficiency; I36.1 Nonrheumatic tricuspid (valve) insufficiency; Z79.01 Long term (current) use of anticoagulants; Z87.891 Personal history of nicotine dependence; Z88.6 Allergy status to analgesic agent
CPT/HCPCS: 36415; 70450; 71010; 71250; 72170; 77012; 80048; 80053; 80061; 80162; 81270; 82105; 82378; 82550; 82553; 82728; 82746; 83036; 83540; 83550; 83735; 84153; 84443; 84484; 85025; 85384; 85610; 85651; 85730; 86021; 86039; 86140; 86300; 90732; 93005; 93306; 99291